=== PATIENT | male | born 1945 | race Caucasian/White ===

== ENCOUNTER 2016-11-14 23:49 | Inpatient (IN) | payer OTHER, MEDICARE ==
[~2016-11-14] VITALS: Ht 180.3 cm; Wt 109.5 kg
[~2016-11-14 23:49] MED LIST: ALBU8I INH; AMLO5 PO; ASPI1TAB7 PO; BIDE400T PO; CALCCHW25 PO; CLON.5 PO; DUONI NEB; ERYT2GEL2 TOP; FLUT50SP EACH NARE; FURO20 PO; GABA100C4 PO; KETO2%T TOP; LACT12%T TOP; LEVO75TA41 PO; METH500T3 PO; METO25 PO; NITR0.4S SL; POTA-243 PO; PRAV40 PO; PRED20 PO; PRIL20CA PO; SYMB160A INH; TAMS0.4C67 PO; TIOT18I INH; TRAM100T19 PO; WARF5TAB PO; Z.0.OXYGENDME NC; ZITH250T PO
[2016-11-15] VITALS (24 sets, daily range): BP systolic 116–142; BP diastolic 71–95; PULSE 78–138; RESP 14–24; TEMP 97.6–98.9; O2SAT 88–100
[2016-11-15] MEDS ORDERED: SODIUM CHLORIDE 0.9% FLUSH 10 ML FLUSH IVF PRN ×2 (00:15→02:15)
[2016-11-15] MEDS ORDERED: methylPREDNISolone SOD SUCC 125 MG/2 ML VIAL IVP ONE (00:15)
[2016-11-15] MEDS: RESP: ALBUTEROL 2.5 MG/IPRATROPIUM 0.5 MG NEB (SCH) INH ×2 (00:25→00:26)
[2016-11-15 00:34] LABS: AUTOMATED NEUTROPHIL # 15.7 TH/MM3 (1.8-7.7); BASOPHIL % 0.1 % (0.0-2.0); EOSINOPHIL # 0.1 TH/MM3 (0-0.4); EOSINOPHIL % 0.5 % (0.0-4.0); HEMATOCRIT 39.7 % (39.0-51.0); LYMPH % 9.6 % (9.0-44.0); LYMPHOCYTE # 1.8 TH/MM3 (1.0-4.8); MEAN CELL VOLUME 89.7 FL (80.0-100.0); MEAN CORPUSCULAR HEMOGLOBIN 30.4 PG (27.0-34.0); MEAN CORPUSCULAR HGB CONC 33.9 % (32.0-36.0); MONO % 6.9 % (0.0-8.0); NEUT % 82.9 % (16.0-70.0); PLATELET COUNT 313 TH/MM3 (150-450); RED BLOOD COUNT 4.42 MIL/MM3 (4.50-5.90); RED CELL DISTRIBUTION WIDTH 16.4 % (11.6-17.2)
--- NOTE | 2016-11-15 00:34 | RADRPT ---
EXAM DATE/TIME: 11/15/2016 00:18 [facility] COMPARISON: CHEST PA & LAT, May 01, 2015, 16:58. INDICATIONS : Short of breath. MEDICAL HISTORY : None. SURGICAL HISTORY : None. ENCOUNTER: Initial ACUITY: 1 day PAIN SCORE: 0/10 LOCATION: Bilateral chest FINDINGS: There is hazy airspace process left lung base and small left pleural effusion is suspected. There are old healed rib fractures in the left chest. Heart and mediastinum have not significantly changed. CONCLUSION: Small left pleural effusion and left lung base hazy opacity may represent pneumonia. Edward D eLa O MD on November 15, 2016 at 0:31 Board Certified Radiologist. This report was verified electronically.
[2016-11-15 00:36] LABS: HEMO FLAGS AUTO DIFF
[2016-11-15 00:48] LABS: APTT (PATIENT) 25.1 SEC (24.3-30.1); PROTHROMBIN TIME - PATIENT 11.1 SEC (9.8-11.6)
[2016-11-15 00:54] LABS: ALT (GPT) 34 U/L (12-78); ANION GAP 8 MEQ/L (5-15); AST (GOT) 17 U/L (15-37); BICARBONATE 35.7 MEQ/L (21.0-32.0); BLOOD UREA NITROGEN 14 MG/DL (7-18); CHLORIDE 94 MEQ/L (98-107); GLOMERULAR FILTRATION RATE 87 ML/MIN (>89); POTASSIUM 3.7 MEQ/L (3.5-5.1); SODIUM (NA) 138 MEQ/L (136-145)
[2016-11-15 00:58] LABS: SCAN/DIFF AUTO DIFF CONFIRMED
[2016-11-15 01:07] LABS: ALKALINE PHOSPHATASE 68 U/L (45-117); TOTAL BILIRUBIN ADULT 0.7 MG/DL (0.2-1.0)
[2016-11-15 01:15] LABS: CREATINE KINASE 36 U/L (39-308)
[2016-11-15] MEDS ORDERED: DILTIAZEM HCL 25 MG/5 ML VIAL IV ONE (01:45)
[2016-11-15] MEDS ORDERED: AZITHROMYCIN INJ 500 MG in SODIUM CHLOR 0.9% 250 ML INJ 250 ML IV ONE (01:45)
[2016-11-15] MEDS ORDERED: cefTRIAXone INJ 1,000 MG in SODIUM CHLORIDE 0.9% INJ 100 ML IV ONE (01:45)
[2016-11-15] MEDS ORDERED: SODIUM CHLORID 0.9% 500 ML INJ 500 ML IV ONE (01:45)
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
[2016-11-15] MEDS: DILTIAZEM INJ 125 MG in SODIUM CHLORIDE 0.9% INJ 100 ML IV SCH ×2 (02:47→20:08)
[2016-11-15] MEDS ORDERED: IOHEXOL 350 MG/ML 10 ML VIAL (for RAD DIAG) IV ONE (03:21)
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
[2016-11-15] MEDS ORDERED: NALOXONE HCL 0.4 MG/ML AMP IV PRN (03:30)
[2016-11-15] MEDS ORDERED: ONDANSETRON HCL 4 MG/2 ML VIAL IVP PRN (03:30)
[2016-11-15] MEDS ORDERED: SENNOSIDES 8.6 MG TAB PO PRN (03:30)
[2016-11-15] MEDS ORDERED: ACETAMINOPHEN 325 MG TAB PO PRN ×2 (03:30)
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
[2016-11-15] MEDS ORDERED: POTASSIUM CHLORIDE 25 MEQ EFFERVESCENT TAB PO ONE (04:00)
[2016-11-15] MEDS ORDERED: MORPHINE SULFATE 4 MG/ML INJ IV PUSH PRN (04:00)
[2016-11-15] MEDS: METOPROLOL TARTRATE 50 MG TAB PO SCH ×3 (04:14→19:57)
[2016-11-15] MEDS: FUROSEMIDE 40 MG/4 ML VIAL IV PUSH SCH ×2 (04:14→10:20)
[2016-11-15 04:17] LABS: BLOOD, URINE NEG (NEG); GLUCOSE,URINE NEG (NEG); KETONE, URINE NEG (NEG); NITRITE,URINE NEG (NEG); PH, URINE 7.5 (5.0-8.5); URINE COLOR YELLOW (YELLW/STRAW)
[2016-11-15 04:36] LABS: COMMENT (UR) CULT NOT INDICATED; CULTURE IF INDICATED CULT NOT INDICATED
[2016-11-15] MEDS ORDERED: methylPREDNISolone SOD SUCC 40 MG/1 ML VIAL IV PUSH SCH (06:00)
[2016-11-15] MEDS: LEVOTHYROXINE SODIUM 75 MCG TAB PO SCH (06:13)
[2016-11-15] MEDS ORDERED: CHLORHEXIDINE GLUCONATE 2 % 1 PACK (2 CLOTHS)(extra cloths) TOPICAL PRN (06:15)
[2016-11-15] MEDS: ENOXAPARIN SODIUM 40 MG/0.4 ML SYRINGE SQ SCH (09:00)
[2016-11-15 09:03] LABS: BLOOD GAS CARBOXYHEMOGLOBIN 2.3 % (0-4); BLOOD GAS HCO3 29 mmol/L (22-26); BLOOD GAS METHEMOGLOBIN 1.1 % (0-2); BLOOD GAS O2 HGB SATURATION 90 % (90-100); BLOOD GAS OXYGEN CONTENT 15.5 Vol % (12.0-20.0); BLOOD GAS PCO2 44 mmHg (38-42); BLOOD GAS PO2 69 mmHg (61-120); BLOOD GAS TOTAL HGB 12.2 G/DL (12.0-16.0); CRITICAL VALUE NO; DRAW SITE LT RADIAL; FIO2 50 %; NUMBER OF ARTERIAL PUNCTURES 1; OXYGEN DEVICE Venti Mask; STAT YES; TEMP CORR TO 98.6; ULNAR PULSE PRESENT
[2016-11-15] MEDS ORDERED: ETOMIDATE 40 MG/20 ML VIAL ONE (09:19)
[2016-11-15] MEDS ORDERED: ROCURONIUM INJ 50 MG/5 ML VIAL ONE (09:20)
[2016-11-15] MEDS ORDERED: PROPOFOL 500 MG/50 ML INJ 50 ML ONE (09:21)
[2016-11-15] MEDS: RESP: ALBUTEROL 2.5 MG/IPRATROPIUM 0.5 MG NEB (PRN) NEB (10:11)
[2016-11-15] MEDS: PANTOPRAZOLE SOD 40 MG DELAYED RELEASE TAB PO SCH (10:20)
[2016-11-15] MEDS: DOCUSATE SODIUM 100 MG CAP PO SCH ×2 (10:20→19:57)
[2016-11-15] MEDS: SODIUM CHLORIDE 0.9% FLUSH 10 ML FLUSH IV FLUSH SCH ×2 (10:21→19:57)
--- NOTE | 2016-11-15 10:24 | RADRPT ---
EXAM DATE/TIME: 11/15/2016 09:55 [place] COMPARISON: CHEST SINGLE AP, November 15, 2016, 0:18. INDICATIONS : Post intubation, OG tube, & left side chest tube. MEDICAL HISTORY : Chronic obstructive pulmonary disease. Congestive heart failure. Gastroesophageal reflux disease.Hype rtension. Hepatitis C. SURGICAL HISTORY : None. ENCOUNTER: Subsequent ACUITY: 4 - 6 days PAIN SCORE: Non-responsive. LOCATION: Left chest FINDINGS: A single view of the chest demonstrates cardiomegaly and left basilar density. No pneumothorax. Left- sided chest tube in good position. Endotracheal tube with tip 6 cm above the mary. Nasogastric tube with tip in stomach. Old left-sided rib fractures. Osseous structures are intact. CONCLUSION: 1. Cardiomegaly with left basilar density. 2. No pneumothorax. Dwayne Muniz MD on November 15, 2016 at 10:21 Board Certified Radiologist. This report was verified electronically.
[2016-11-15] MEDS ORDERED: PROPOFOL 1000 MG/100 ML INJ 100 ML ONE (10:29)
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
[2016-11-15 10:48] LABS: BLOOD GAS BASE EXCESS 8.1 mmol/L (-2-2); BLOOD GAS CARBOXYHEMOGLOBIN 2.1 % (0-4); BLOOD GAS HCO3 32 mmol/L (22-26); BLOOD GAS O2 HGB SATURATION 94 % (90-100); BLOOD GAS OXYGEN CONTENT 15.3 Vol % (12.0-20.0); BLOOD GAS PCO2 41 mmHg (38-42); BLOOD GAS PO2 83 mmHg (61-120); BLOOD GAS TOTAL HGB 11.6 G/DL (12.0-16.0); TEMP CORR TO 98.6
[2016-11-15 10:49] LABS: CRITICAL VALUE NO; DRAW SITE LT RADIAL; FIO2 100 %; NUMBER OF ARTERIAL PUNCTURES 1; OXYGEN DEVICE VENTILATOR; STAT NO; ULNAR PULSE PRESENT; VENT SETTINGS A/C 500/20/5PEEP
[2016-11-15] MEDS ORDERED: DEXTROSE 50% IN WATER 50 ML VIAL(D50) IV PRN (11:00)
[2016-11-15] MEDS ORDERED: GLUCAGON 1 MG/ML VIAL IM/SQ PRN (11:00)
--- NOTE | 2016-11-15 11:13 | PD.PROCEDR ---
Procedure Note Procedure Procedure: Endotracheal intubation Preop diagnosis: Acute on chronic respiratory failure, left pneumothorax, left lower lobe pneumonia, COPD exacerbation Postop diagnosis: Same Indication: Hypoxic respiratory failure Sedation used: Etomidate 40 mg, fentanyl 200 mcg, rocuronium 50 mg IV Procedure: Patient was preoxygenated with 100% oxygen via Ambu bag with bag mask ventilation, following induction of sedation and neuromuscular blockade, direct laryngoscopy was performed using a Mac 4 blade however due to floppy epiglottis and vocal cords were not visualized. A glide scope was used to visualize the vocal cords and an 8 Hong Konger ET tube was passed through the vocal cords under visualization with glide scope up to the 22 centimeter emanuel and after inflating cuff of ET tube, correct placement was confirmed using bagging with good color change on CO2 detector, 5 point auscultation and chest rise with ventilation. Patient was connected to mechanical ventilation. Patient tolerated the procedure well with no immediate complications noted. Postprocedure chest x-ray was ordered. Michael Titus MD November 15, 2016 11:00
[2016-11-15] MEDS: INSULIN ASPART SUPPLEMENTAL SCALE SQ SCH ×2 (12:00→18:00)
[2016-11-15] MEDS: RESP: ALBUTEROL 2.5 MG/IPRATROPIUM 0.5 MG NEB (SCH) NEB ×4 (12:00→23:38)
[2016-11-15 12:39] LABS: AUTOMATED NEUTROPHIL # 15.7 TH/MM3 (1.8-7.7); BASOPHIL % 0.2 % (0.0-2.0); HEMATOCRIT 33.4 % (39.0-51.0); HEMO FLAGS DIFF FINAL; LYMPH % 1.4 % (9.0-44.0); LYMPHOCYTE # 0.2 TH/MM3 (1.0-4.8); MEAN CELL VOLUME 89.1 FL (80.0-100.0); MEAN CORPUSCULAR HEMOGLOBIN 30.5 PG (27.0-34.0); MEAN CORPUSCULAR HGB CONC 34.3 % (32.0-36.0); MONO % 1.4 % (0.0-8.0); PLATELET COUNT 277 TH/MM3 (150-450); RED BLOOD COUNT 3.75 MIL/MM3 (4.50-5.90); RED CELL DISTRIBUTION WIDTH 16.6 % (11.6-17.2); WHITE BLOOD COUNT 16.2 TH/MM3 (4.0-11.0)
[2016-11-15 13:08] LABS: ALKALINE PHOSPHATASE 57 U/L (45-117); ALT (GPT) 28 U/L (12-78); ANION GAP 10 MEQ/L (5-15); AST (GOT) 18 U/L (15-37); BICARBONATE 34.3 MEQ/L (21.0-32.0); BLOOD UREA NITROGEN 16 MG/DL (7-18); CHLORIDE 92 MEQ/L (98-107); GLOMERULAR FILTRATION RATE 120 ML/MIN (>89); POTASSIUM 3.8 MEQ/L (3.5-5.1); SODIUM (NA) 136 MEQ/L (136-145); TOTAL BILIRUBIN ADULT 0.9 MG/DL (0.2-1.0)
[2016-11-15] MEDS: methylPREDNISolone SOD SUCC 40 MG/1 ML VIAL IV PUSH SCH ×2 (13:54→19:57)
[2016-11-15] MEDS: PROPOFOL 1000 MG/100 ML INJ 100 ML IV SCH ×3 (13:54→20:08)
--- NOTE | 2016-11-15 15:34 | EKG ---
Date Performed: 11/15/2016 Time Performed: 04:15:37 PTAGE: 70 years EKG: ATRIAL FIBRILLATION WITH RAPID VENTRICULAR RESPONSE RIGHT BUNDLE BRANCH BLOCK ABNORMAL ECG NO PREVIOUS TRACING DOCTOR: Reji Gabriel Interpretating Date/Time 11/15/2016 15:33:50
--- NOTE | 2016-11-15 15:34 | EKG ---
Date Performed: 11/14/2016 Time Performed: 23:53:55 PTAGE: 70 years EKG: ATRIAL FIBRILLATION WITH RAPID VENTRICULAR RESPONSE RIGHT BUNDLE BRANCH BLOCK ST DEPRESSION , CONSIDER SUBENDOCARDIAL INJURY ABNORMAL ECG WARNING: DATA QUALITY MAY AFFECT INTERPRETATION Compare d to prior tracing no significant change PREVIOUS TRACING : 05/01/2015 16.21 DOCTOR: Reji Gabriel Interpretating Date/Time 11/15/2016 15:33:30
--- NOTE | 2016-11-15 17:20 | OTSOAPIP ---
TIME SESSION COMPLETED: 1529 RECEIVED OCCUPATIONAL THERAPY ORDERS FROM DR. OTOOLE. PATIENT WAS AGITATED AND COMBATIVE EARLIER IN AM, REQUIRED INTUBATION. RN REQUESTS TO HOLD EVALUATION THIS DATE. WILL FOLLOW. INTERDISCIPLINARY COMMUNICATION: REVIEWED ELECTRONIC MEDICAL RECORD, SPOKE WITH HUGO BEE Therapist: Yessica Cruz, OTR/L Signature on file
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
[2016-11-15] MEDS: CHLORHEXIDINE 0.12% (ORAL KIT) 15 ML CUP MT SCH (19:58)
--- NOTE | 2016-11-15 21:02 | MP ---
cc: MILAGROS IBANEZ MD DATE OF SURGERY 11/15/16 PREOPERATIVE DIAGNOSIS 1. Respiratory failure, severe COPD. 2. Left-sided hemopneumothorax. POSTOPERATIVE DIAGNOSIS 1. Respiratory failure, severe COPD. 2. Left-sided hemopneumothorax. PROCEDURE Left chest tube placement. SURGEON Hesham Ibanez MD ANESTHESIA 1% Xylocaine and the patient is intubated, ventilated. ESTIMATED BLOOD LOSS minimal. PROCEDURE IN DETAIL The patient prepped and draped usual fashion. Incision made in the fifth intercostal space mid axillary line, deepened down with a hemostat into the chest. Then a 28-Welsh chest tube placed in posterior sulcus, sewn in with 0-silk, connected to Pleur-Evac. About 200 mL of old blood is removed. No air leak is noted. The patient tolerated the procedure well. Chest x-ray obtained. Milagros HOBBS/ /4:59 PM /8:54 PM
[2016-11-16] VITALS (19 sets, daily range): BP systolic 107–135; BP diastolic 68–88; PULSE 66–97; RESP 14–22; TEMP 98–98.9; O2SAT 91–99
[2016-11-16] MEDS: PROPOFOL 1000 MG/100 ML INJ 100 ML IV SCH ×5 (00:16→20:50)
[2016-11-16] MEDS: cefTRIAXone INJ 1,000 MG in SODIUM CHLORIDE 0.9% INJ 100 ML IV SCH (00:16)
[2016-11-16] MEDS: RESP: ALBUTEROL 2.5 MG/IPRATROPIUM 0.5 MG NEB (SCH) NEB ×6 (03:35→23:25)
[2016-11-16] MEDS: CHLORHEXIDINE GLUCONATE 2 % 1 PACK (2 CLOTHS)(taper/protocol) TOPICAL SCH (04:00)
[2016-11-16] MEDS: LEVOTHYROXINE SODIUM 75 MCG TAB PO SCH (04:34)
[2016-11-16] MEDS: methylPREDNISolone SOD SUCC 40 MG/1 ML VIAL IV PUSH SCH ×3 (04:34→20:50)
[2016-11-16] MEDS: AZITHROMYCIN INJ 500 MG in SODIUM CHLOR 0.9% 250 ML INJ 250 ML IV SCH (04:38)
[2016-11-16] MEDS: INSULIN ASPART SUPPLEMENTAL SCALE SQ SCH ×3 (06:00→12:00)
[2016-11-16] MEDS: PANTOPRAZOLE SOD 40 MG DELAYED RELEASE TAB PO SCH (08:04)
[2016-11-16] MEDS: METOPROLOL TARTRATE 50 MG TAB PO SCH ×2 (08:04→20:49)
[2016-11-16] MEDS: ENOXAPARIN SODIUM 40 MG/0.4 ML SYRINGE SQ SCH (08:04)
[2016-11-16] MEDS: DOCUSATE SODIUM 100 MG CAP PO SCH (08:05)
[2016-11-16] MEDS: FUROSEMIDE 40 MG/4 ML VIAL IV PUSH SCH (08:05)
[2016-11-16] MEDS: SODIUM CHLORIDE 0.9% FLUSH 10 ML FLUSH IV FLUSH SCH ×2 (08:06→20:51)
[2016-11-16] MEDS: CHLORHEXIDINE 0.12% (ORAL KIT) 15 ML CUP MT SCH ×2 (08:07→20:51)
[2016-11-16 08:49] LABS: AUTOMATED NEUTROPHIL # 16.4 TH/MM3 (1.8-7.7); BASOPHIL # 0.1 TH/MM3 (0-0.2); BASOPHIL % 0.3 % (0.0-2.0); HEMATOCRIT 31.6 % (39.0-51.0); LYMPH % 2.6 % (9.0-44.0); LYMPHOCYTE # 0.5 TH/MM3 (1.0-4.8); MEAN CELL VOLUME 89.5 FL (80.0-100.0); MEAN CORPUSCULAR HGB CONC 33.5 % (32.0-36.0); MONO % 3.4 % (0.0-8.0); NEUT % 93.7 % (16.0-70.0); PLATELET COUNT 255 TH/MM3 (150-450); RED BLOOD COUNT 3.53 MIL/MM3 (4.50-5.90); RED CELL DISTRIBUTION WIDTH 16.6 % (11.6-17.2); WHITE BLOOD COUNT 17.6 TH/MM3 (4.0-11.0)
[2016-11-16 08:57] LABS: HEMO FLAGS AUTO DIFF
[2016-11-16 09:09] LABS: ALKALINE PHOSPHATASE 50 U/L (45-117); ALT (GPT) 22 U/L (12-78); ANION GAP 8 MEQ/L (5-15); AST (GOT) 19 U/L (15-37); BICARBONATE 32.2 MEQ/L (21.0-32.0); BLOOD UREA NITROGEN 21 MG/DL (7-18); CHLORIDE 96 MEQ/L (98-107); GLOMERULAR FILTRATION RATE 124 ML/MIN (>89); SODIUM (NA) 136 MEQ/L (136-145); TOTAL BILIRUBIN ADULT 0.3 MG/DL (0.2-1.0)
[2016-11-16 09:10] LABS: POTASSIUM 4.5 MEQ/L (3.5-5.1)
[2016-11-16 09:11] LABS: CREATINE KINASE 64 U/L (39-308)
[2016-11-16 09:50] LABS: NEUTROPHIL # MANUAL DIFF 15.7 TH/MM3 (1.8-7.7); POLYS (SEG NEUTROPHILS) 89 % (16-70); WBC DIFF SAMPLE 100
[2016-11-16 09:51] LABS: PLATELET ESTIMATE SMEAR NORMAL (NORMAL); PLATELET MORPHOLOGY NORMAL (NORMAL); SCAN/DIFF FINAL DIFF MANUAL
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
[2016-11-16] MEDS ORDERED: SENNOSIDES SYRUP 8.8 MG/5 ML CUP PO ONE (10:30)
[2016-11-16] MEDS: DEXMEDETOMIDINE INJ 200 MCG in SODIUM CHLORIDE 0.9% INJ 50 ML IV SCH ×3 (10:54→14:51)
--- NOTE | 2016-11-16 15:32 | PD.CAR.PN ---
CVT Progress Note Subjective/Hospital Course: 11/16/16 Patient respiratory failure had chest tube placed yesterday Minimal drainage at this time after initial 300 cc of old blood No air leak noted Continue care Nothing to add from surgical point Objective: Vital Signs Date Time Temp Pulse Resp B/P Pulse Ox O2 Delivery O2 Flow Rate FiO2 11/16/16 14:00 67 11/16/16 14:00 77 11/16/16 12:00 98.7 77 17 130/88 93 11/16/16 12:00 76 11/16/16 12:00 40 11/16/16 11:45 93 40 11/16/16 10:00 95 11/16/16 08:00 95 11/16/16 08:00 40 11/16/16 08:00 98.8 95 16 133/82 94 11/16/16 07:27 93 40 11/16/16 07:00 92 11/16/16 06:00 93 11/16/16 04:08 93 40 11/16/16 04:00 96 14 123/79 93 11/16/16 04:00 45 11/16/16 04:00 97 11/16/16 02:00 88 11/16/16 00:00 45 11/16/16 00:00 98.0 88 22 114/70 99 11/16/16 00:00 86 11/15/16 23:37 96 40 11/15/16 23:00 89 11/15/16 22:00 80 11/15/16 20:00 78 11/15/16 20:00 45 11/15/16 20:00 98.0 88 14 97 11/15/16 19:44 95 40 11/15/16 18:00 92 11/15/16 16:00 97.7 96 14 122/86 100 11/15/16 16:00 96 11/15/16 16:00 70 Labs: Laboratory Tests Test 11/16/16 08:15 White Blood Count 17.6 TH/MM3 (4.0-11.0) Red Blood Count 3.53 MIL/MM3 (4.50-5.90) Hemoglobin 10.6 GM/DL (13.0-17.0) Hematocrit 31.6 % (39.0-51.0) Mean Corpuscular Volume 89.5 FL (80.0-100.0) Mean Corpuscular Hemoglobin 30.0 PG (27.0-34.0) Mean Corpuscular Hemoglobin 33.5 % Concent (32.0-36.0) Red Cell Distribution Width 16.6 % (11.6-17.2) Platelet Count 255 TH/MM3 (150-450) Mean Platelet Volume 7.8 FL (7.0-11.0) Neutrophils (%) (Auto) 93.7 % (16.0-70.0) Lymphocytes (%) (Auto) 2.6 % (9.0-44.0) Monocytes (%) (Auto) 3.4 % (0.0-8.0) Eosinophils (%) (Auto) 0.0 % (0.0-4.0) Basophils (%) (Auto) 0.3 % (0.0-2.0) Neutrophils # (Auto) 16.4 TH/MM3 (1.8-7.7) Lymphocytes # (Auto) 0.5 TH/MM3 (1.0-4.8) Monocytes # (Auto) 0.6 TH/MM3 (0-0.9) Eosinophils # (Auto) 0.0 TH/MM3 (0-0.4) Basophils # (Auto) 0.1 TH/MM3 (0-0.2) CBC Comment AUTO DIFF Differential Total Cells 100 Counted Neutrophils % (Manual) 89 % (16-70) Lymphocytes % 5 % (9-44) Monocytes % 6 % (0-8) Neutrophils # (Manual) 15.7 TH/MM3 (1.8-7.7) Differential Comment FINAL DIFF MANUAL Platelet Estimate NORMAL (NORMAL) Platelet Morphology Comment NORMAL (NORMAL) Sodium Level 136 MEQ/L (136-145) Potassium Level 4.5 MEQ/L (3.5-5.1) Chloride Level 96 MEQ/L (98-107) Carbon Dioxide Level 32.2 MEQ/L (21.0-32.0) Anion Gap 8 MEQ/L (5-15) Blood Urea Nitrogen 21 MG/DL (7-18) Creatinine 0.64 MG/DL (0.60-1.30) Estimat Glomerular Filtration 124 ML/MIN Rate (>89) Random Glucose 164 MG/DL (74-106) Calcium Level 8.4 MG/DL (8.5-10.1) Phosphorus Level 3.0 MG/DL (2.5-4.9) Magnesium Level 2.0 MG/DL (1.5-2.5) Total Bilirubin 0.3 MG/DL (0.2-1.0) Aspartate Amino Transf 19 U/L (15-37) (AST/SGOT) Alanine Aminotransferase 22 U/L (12-78) (ALT/SGPT) Alkaline Phosphatase 50 U/L (45-117) Total Creatine Kinase 64 U/L (39-308) Total Protein 5.3 GM/DL (6.4-8.2) Albumin 2.3 GM/DL (3.4-5.0) Result Diagram: 11/16/16 0815 11/16/16 0815 Lars Teresa MD November 16, 2016 3:32 pm
[2016-11-16] MEDS: fentaNYL DRIP 250 ML IV SCH (15:42)
--- NOTE | 2016-11-16 15:47 | HHI.PR ---
Subjective Remarks 70 YOWM with VDRF,PTX, pulm contusion, left ribs fractur On Vent Sedated Did't tolertae weaning Now on Precedex Chest tube no air leak Objective Vital Signs Vital Signs Date Time Temp Pulse Resp B/P Pulse Ox O2 Delivery O2 Flow Rate FiO2 11/16/16 14:00 67 11/16/16 14:00 77 11/16/16 12:00 98.7 77 17 130/88 93 11/16/16 12:00 76 11/16/16 12:00 40 11/16/16 11:45 93 40 11/16/16 10:00 95 11/16/16 08:00 95 11/16/16 08:00 40 11/16/16 08:00 98.8 95 16 133/82 94 11/16/16 07:27 93 40 11/16/16 07:00 92 11/16/16 06:00 93 11/16/16 04:08 93 40 11/16/16 04:00 96 14 123/79 93 11/16/16 04:00 45 11/16/16 04:00 97 11/16/16 02:00 88 11/16/16 00:00 45 11/16/16 00:00 98.0 88 22 114/70 99 11/16/16 00:00 86 11/15/16 23:37 96 40 11/15/16 23:00 89 11/15/16 22:00 80 11/15/16 20:00 78 11/15/16 20:00 45 11/15/16 20:00 98.0 88 14 97 11/15/16 19:44 95 40 11/15/16 18:00 92 11/15/16 16:00 97.7 96 14 122/86 100 11/15/16 16:00 96 11/15/16 16:00 70 I/O 11/15/16 11/15/16 11/15/16 11/16/16 11/16/16 11/16/16 07:00 15:00 23:00 07:00 15:00 23:00 Intake Total 610 ml 1858 ml 1381 ml 1465 ml Output Total 1250 ml 1650 ml 570 ml 270 ml 1150 ml Balance -1250 ml -1040 ml 1288 ml 1111 ml 315 ml Intake IV Total 610 ml 1401 ml 928 ml 930 ml Tube Feeding 337 ml 333 ml 495 ml Tube Irrigant 40 ml Other 120 ml 120 ml Output Urine Total 1250 ml 1400 ml 450 ml 250 ml 1150 ml Stool Total 0 ml 0 ml Chest Tube Drainage Total 250 ml 120 ml 20 ml # Bowel Movements 0 0 Result Diagram: 11/16/1681411/16/16814 Objective Remarks GENERAL: WBWN WM on vent, sedated SKIN: Warm and dry. HEAD: Normocephalic. EYES: No scleral icterus. No injection or drainage. NECK: Supple, trachea midline. No JVD or lymphadenopathy. CARDIOVASCULAR: Regular rate and rhythm without murmurs, gallops, or rubs. RESPIRATORY: Breath sounds equal bilaterally. No accessory muscle use. Left chest tube, no air leak. GASTROINTESTINAL: Abdomen soft, non-tender, nondistended. MUSCULOSKELETAL: No cyanosis, or edema. BACK: Nontender without obvious deformity. No CVA tenderness. A/P Assessment and Plan VDRF COPD PTX, s/p left chest tube Pulm contusion Ribs Fracture PALN: Vent support CPAP trial Chest tube to suction Aerosol nebs Sedation with Precedex. Ousmane Li MD November 16, 2016 15:47
[2016-11-16] MEDS: RESP: BUDESONIDE 0.5 MG/2 ML NEB NEB SCH (19:36)
[2016-11-16] MEDS: DOCUSATE SODIUM 100 MG/10 ML UDC PO SCH (20:50)
[2016-11-17] VITALS (32 sets, daily range): BP systolic 105–132; BP diastolic 68–89; PULSE 63–92; RESP 8–28; TEMP 97.8–98.9; O2SAT 89–100
[2016-11-17] MEDS: PROPOFOL 1000 MG/100 ML INJ 100 ML IV SCH ×6 (00:24→21:08)
[2016-11-17] MEDS: DILTIAZEM INJ 125 MG in SODIUM CHLORIDE 0.9% INJ 100 ML IV SCH (00:24)
[2016-11-17] MEDS: AZITHROMYCIN INJ 500 MG in SODIUM CHLOR 0.9% 250 ML INJ 250 ML IV SCH (02:15)
[2016-11-17] MEDS: cefTRIAXone INJ 1,000 MG in SODIUM CHLORIDE 0.9% INJ 100 ML IV SCH (02:15)
[2016-11-17] MEDS: RESP: ALBUTEROL 2.5 MG/IPRATROPIUM 0.5 MG NEB (SCH) NEB ×6 (03:27→23:40)
[2016-11-17] MEDS: methylPREDNISolone SOD SUCC 40 MG/1 ML VIAL IV PUSH SCH ×3 (05:43→21:08)
[2016-11-17] MEDS: CHLORHEXIDINE GLUCONATE 2 % 1 PACK (2 CLOTHS)(taper/protocol) TOPICAL SCH (05:43)
[2016-11-17] MEDS: LEVOTHYROXINE SODIUM 75 MCG TAB PO SCH (05:43)
[2016-11-17] MEDS: INSULIN ASPART SUPPLEMENTAL SCALE SQ SCH ×5 (06:02→22:33)
[2016-11-17] MEDS: RESP: BUDESONIDE 0.5 MG/2 ML NEB NEB SCH ×2 (08:23→20:43)
[2016-11-17] MEDS: ENOXAPARIN SODIUM 40 MG/0.4 ML SYRINGE SQ SCH (11:34)
[2016-11-17] MEDS: DOCUSATE SODIUM 100 MG/10 ML UDC PO SCH ×2 (11:34→21:09)
[2016-11-17] MEDS: METOPROLOL TARTRATE 50 MG TAB PO SCH ×2 (11:35→21:09)
[2016-11-17] MEDS: PANTOPRAZOLE SODIUM 40 MG VIAL IV PUSH SCH (11:35)
[2016-11-17] MEDS: SENNOSIDES SYRUP 8.8 MG/5 ML CUP PO SCH (11:35)
[2016-11-17] MEDS: SODIUM CHLORIDE 0.9% FLUSH 10 ML FLUSH IV FLUSH SCH ×2 (11:35→21:00)
[2016-11-17] MEDS: FUROSEMIDE 40 MG/4 ML VIAL IV PUSH SCH (11:35)
[2016-11-17] MEDS: SODIUM CHLORIDE 0.9% FLUSH 10 ML FLUSH IV FLUSH PRN (11:36)
[2016-11-17] MEDS: CHLORHEXIDINE 0.12% (ORAL KIT) 15 ML CUP MT SCH ×2 (11:38→21:08)
[2016-11-17] MEDS: fentaNYL DRIP 250 ML IV SCH ×2 (13:02→21:07)
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
--- NOTE | 2016-11-17 15:04 | RADRPT ---
EXAM DATE/TIME: 11/17/2016 13:57 [facility] COMPARISON: CHEST SINGLE AP, November 15, 2016, 9:55. INDICATIONS : Evaluate for pneumothorax. MEDICAL HISTORY : Chronic obstructive pulmonary disease. Congestive heart failure. SURGICAL HISTORY : Gastroesophageal reflux disease.Hypertension. Hepatitis C. ENCOUNTER: Subsequent ACUITY: 1 week PAIN SCORE: Non-responsive. LOCATION: Bilateral chest FINDINGS: A single view of the chest demonstrates endotracheal tube tip in satisfactory position. NG enters sto mach. Left chest tube without pneumothorax. Basilar airspace disease, left greater than right similar to November 15. CONCLUSION: 1. Support apparatus in satisfactory position. Left chest tube without pneumothorax. Kiran Montejo MD on November 17, 2016 at 14:52 Board Certified Radiologist. This report was verified electronically.
[2016-11-17 15:10] LABS: HEMATOCRIT 34.8 % (39.0-51.0); MEAN CELL VOLUME 90.1 FL (80.0-100.0); MEAN CORPUSCULAR HEMOGLOBIN 29.8 PG (27.0-34.0); PLATELET COUNT 247 TH/MM3 (150-450); RED BLOOD COUNT 3.87 MIL/MM3 (4.50-5.90); RED CELL DISTRIBUTION WIDTH 16.5 % (11.6-17.2); REVIEW FLAG FINAL; WHITE BLOOD COUNT 23.5 TH/MM3 (4.0-11.0)
[2016-11-17 15:33] LABS: BICARBONATE 31.7 MEQ/L (21.0-32.0)
[2016-11-17] MEDS ORDERED: SODIUM BICARBONATE 8.4% INJ 50 ML ONE (17:43)
--- NOTE | 2016-11-17 18:41 | HHI.PR ---
Subjective Remarks 70 YOWM with VDRF,PTX, pulm contusion, left ribs fractur On Vent Sedated Did't tolertae weaning Gets agitated on weaning Chest tube no air leak CXR no PTX Objective Vital Signs Vital Signs Date Time Temp Pulse Resp B/P Pulse Ox O2 Delivery O2 Flow Rate FiO2 11/17/16 18:00 88 11/17/16 16:17 92 40 11/17/16 16:00 40 11/17/16 16:00 80 11/17/16 16:00 98.4 80 14 111/79 90 11/17/16 15:30 85 14 111/72 89 11/17/16 15:00 80 14 114/76 90 11/17/16 14:30 81 16 113/74 91 11/17/16 14:00 81 11/17/16 14:00 81 8 132/68 94 11/17/16 13:30 74 14 122/68 92 11/17/16 13:00 74 14 119/80 92 11/17/16 12:30 73 16 122/87 91 11/17/16 12:18 78 18 125/79 91 11/17/16 12:00 83 11/17/16 12:00 40 11/17/16 12:00 98.9 83 14 100 11/17/16 11:30 81 15 123/78 100 11/17/16 11:19 92 40 11/17/16 11:00 73 14 115/78 92 11/17/16 10:30 76 14 114/74 93 11/17/16 10:00 79 11/17/16 10:00 79 14 118/76 94 11/17/16 09:30 72 16 122/73 94 11/17/16 09:00 73 20 115/89 94 11/17/16 08:30 79 28 126/82 100 11/17/16 08:25 94 40 11/17/16 08:00 72 11/17/16 08:00 40 11/17/16 08:00 98.6 72 16 120/76 96 11/17/16 06:00 72 11/17/16 04:09 96 40 11/17/16 04:00 40 11/17/16 04:00 78 11/17/16 04:00 98.3 78 14 105/74 96 11/17/16 02:00 63 11/17/16 00:06 93 40 11/17/16 00:00 40 11/17/16 00:00 66 11/17/16 00:00 98.3 66 14 106/70 94 11/16/16 22:00 66 11/16/16 20:00 98.5 75 14 107/68 91 11/16/16 20:00 40 11/16/16 20:00 75 11/16/16 19:31 92 40 I/O 11/16/16 11/16/16 11/16/16 11/17/16 11/17/16 11/17/16 07:00 15:00 23:00 07:00 15:00 23:00 Intake Total 1381 ml 1465 ml 1515 ml 1442 ml 1598 ml Output Total 270 ml 1170 ml 250 ml 250 ml 600 ml Balance 1111 ml 295 ml 1265 ml 1192 ml 998 ml Intake IV Total 928 ml 930 ml 1054 ml 1012 ml 1143 ml Tube Feeding 333 ml 495 ml 461 ml 430 ml 395 ml Tube Irrigant 40 ml 60 ml Other 120 ml Output Urine Total 250 ml 1150 ml 250 ml 250 ml 600 ml Stool Total 0 ml 0 ml Chest Tube Drainage Total 20 ml 20 ml # Bowel Movements 0 Result Diagram: 11/17/16 1442 11/17/16 1442 Objective Remarks GENERAL: WBWN WM on vent, sedated SKIN: Warm and dry. HEAD: Normocephalic. EYES: No scleral icterus. No injection or drainage. NECK: Supple, trachea midline. No JVD or lymphadenopathy. CARDIOVASCULAR: Regular rate and rhythm without murmurs, gallops, or rubs. RESPIRATORY: Breath sounds equal bilaterally. No accessory muscle use. Left chest tube, no air leak. GASTROINTESTINAL: Abdomen soft, non-tender, nondistended. MUSCULOSKELETAL: No cyanosis, or edema. BACK: Nontender without obvious deformity. No CVA tenderness. A/P Assessment and Plan VDRF COPD PTX, s/p left chest tube Pulm contusion Ribs Fracture PALN: Vent support CPAP trial Chest tube to suction Aerosol nebs Sedation with Precedex. Ousmane Li MD November 17, 2016 18:41
[2016-11-17] MEDS ORDERED: POTASSIUM CHLORIDE 25 MEQ EFFERVESCENT TAB PO ONE (20:00)
[2016-11-17] MEDS ORDERED: MAGNESIUM SULFATE 1 GM PREMIX 100 ML IV ONE (20:00)
[2016-11-18] VITALS (19 sets, daily range): BP systolic 105–131; BP diastolic 73–86; PULSE 91–98; RESP 14–16; TEMP 97.1–98.1; O2SAT 91–96
[2016-11-18] MEDS: cefTRIAXone INJ 1,000 MG in SODIUM CHLORIDE 0.9% INJ 100 ML IV SCH (01:29)
[2016-11-18] MEDS: AZITHROMYCIN INJ 500 MG in SODIUM CHLOR 0.9% 250 ML INJ 250 ML IV SCH (01:29)
[2016-11-18] MEDS: CHLORHEXIDINE GLUCONATE 2 % 1 PACK (2 CLOTHS)(taper/protocol) TOPICAL SCH (02:04)
[2016-11-18] MEDS: PROPOFOL 1000 MG/100 ML INJ 100 ML IV SCH ×6 (02:04→20:19)
[2016-11-18] MEDS: RESP: ALBUTEROL 2.5 MG/IPRATROPIUM 0.5 MG NEB (SCH) NEB ×6 (04:17→23:01)
[2016-11-18 05:06] LABS: ALKALINE PHOSPHATASE 61 U/L (45-117); ALT (GPT) 20 U/L (12-78); ANION GAP 8 MEQ/L (5-15); AST (GOT) 17 U/L (15-37); BICARBONATE 32.4 MEQ/L (21.0-32.0); BLOOD UREA NITROGEN 37 MG/DL (7-18); CHLORIDE 98 MEQ/L (98-107); CREATINE KINASE 182 U/L (39-308); GLOMERULAR FILTRATION RATE 118 ML/MIN (>89); MAGNESIUM 2.5 MG/DL (1.5-2.5); POTASSIUM 4.3 MEQ/L (3.5-5.1); SODIUM (NA) 138 MEQ/L (136-145); TOTAL BILIRUBIN ADULT 0.2 MG/DL (0.2-1.0)
[2016-11-18] MEDS: LEVOTHYROXINE SODIUM 75 MCG TAB PO SCH (05:44)
[2016-11-18] MEDS: methylPREDNISolone SOD SUCC 40 MG/1 ML VIAL IV PUSH SCH ×3 (05:44→20:18)
[2016-11-18] MEDS: INSULIN ASPART SUPPLEMENTAL SCALE SQ SCH ×4 (06:00→23:48)
--- NOTE | 2016-11-18 06:52 | RADRPT ---
EXAM DATE/TIME: 11/18/2016 04:50 [facility] COMPARISON: CHEST SINGLE AP, November 17, 2016, 13:57. INDICATIONS : Evaluate for respiratory failure. MEDICAL HISTORY : Chronic obstructive pulmonary disease. Congestive heart failure. SURGICAL HISTORY : Gastroesophageal reflux disease.Hypertension. Hepatitis C. ENCOUNTER: Subsequent ACUITY: 4 - 6 days PAIN SCORE: Non-responsive. LOCATION: chest FINDINGS: A single view of the chest demonstrates the endotracheal tube, nasogastric tube and left chest tube a ll in good position. There continues to be consolidation left lower lobe with cardiomegaly. Right tatiana g is relatively clear.. Osseous structures are intact. CONCLUSION: Persistent consolidation left lower lobe. Tubes are in good position Presley Pond MD on November 18, 2016 at 6:50 Board Certified Radiologist. This report was verified electronically.
[2016-11-18] MEDS: RESP: BUDESONIDE 0.5 MG/2 ML NEB NEB SCH ×2 (07:48→19:36)
[2016-11-18] MEDS: CHLORHEXIDINE 0.12% (ORAL KIT) 15 ML CUP MT SCH ×2 (08:11→20:18)
[2016-11-18] MEDS: PANTOPRAZOLE SODIUM 40 MG VIAL IV PUSH SCH (08:12)
[2016-11-18] MEDS: SENNOSIDES SYRUP 8.8 MG/5 ML CUP PO SCH ×2 (08:12→20:18)
[2016-11-18] MEDS: DOCUSATE SODIUM 100 MG/10 ML UDC PO SCH ×2 (08:12→20:18)
[2016-11-18] MEDS: FUROSEMIDE 40 MG/4 ML VIAL IV PUSH SCH (08:13)
[2016-11-18] MEDS: SODIUM CHLORIDE 0.9% FLUSH 10 ML FLUSH IV FLUSH SCH ×2 (08:13→20:19)
[2016-11-18] MEDS: METOPROLOL TARTRATE 50 MG TAB PO SCH ×2 (08:13→20:19)
[2016-11-18] MEDS: ENOXAPARIN SODIUM 40 MG/0.4 ML SYRINGE SQ SCH (08:13)
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
[2016-11-18] MEDS: PIPERACIL-TAZO 4.5 GM PREMIX 100 ML IV SCH ×3 (10:27→20:18)
[2016-11-18 11:45] LABS: AUTOMATED NEUTROPHIL # 20.4 TH/MM3 (1.8-7.7); BASOPHIL # 0.2 TH/MM3 (0-0.2); BASOPHIL % 0.9 % (0.0-2.0); EOSINOPHIL % 0.2 % (0.0-4.0); HEMATOCRIT 34.2 % (39.0-51.0); HEMO FLAGS DIFF FINAL; LYMPH % 2.3 % (9.0-44.0); LYMPHOCYTE # 0.5 TH/MM3 (1.0-4.8); MEAN CELL VOLUME 89.7 FL (80.0-100.0); MEAN CORPUSCULAR HEMOGLOBIN 29.3 PG (27.0-34.0); MEAN CORPUSCULAR HGB CONC 32.7 % (32.0-36.0); MONO % 6.3 % (0.0-8.0); NEUT % 90.3 % (16.0-70.0); PLATELET COUNT 239 TH/MM3 (150-450); RED BLOOD COUNT 3.81 MIL/MM3 (4.50-5.90); RED CELL DISTRIBUTION WIDTH 16.7 % (11.6-17.2); WHITE BLOOD COUNT 22.6 TH/MM3 (4.0-11.0)
[2016-11-18 12:31] LABS: BLOOD GAS BASE EXCESS 8.4 mmol/L (-2-2); BLOOD GAS CARBOXYHEMOGLOBIN 1.4 % (0-4); BLOOD GAS HCO3 33 mmol/L (22-26); BLOOD GAS METHEMOGLOBIN 1.4 % (0-2); BLOOD GAS O2 HGB SATURATION 91 % (90-100); BLOOD GAS OXYGEN CONTENT 14.8 Vol % (12.0-20.0); BLOOD GAS PCO2 49 mmHg (38-42); BLOOD GAS PO2 73 mmHg (61-120); BLOOD GAS TOTAL HGB 11.5 G/DL (12.0-16.0); CRITICAL VALUE NO; DRAW SITE LT RADIAL; FIO2 60 %; NUMBER OF ARTERIAL PUNCTURES 1; OXYGEN DEVICE VENTILATOR; STAT NO; TEMP CORR TO 98.6; ULNAR PULSE PRESENT; VENT SETTINGS PRVC/AC
[2016-11-18] MEDS: fentaNYL DRIP 250 ML IV SCH (13:40)
--- NOTE | 2016-11-18 17:03 | HHI.PR ---
Subjective Remarks 70 YOWM with VDRF,PTX, pulm contusion, left ribs fractur On Vent Sedated Chest tube no air leak CXR no PTX Objective Vital Signs Vital Signs Date Time Temp Pulse Resp B/P Pulse Ox O2 Delivery O2 Flow Rate FiO2 11/18/16 16:00 97.1 98 16 105/73 92 11/18/16 16:00 65 11/18/16 16:00 96 11/18/16 15:23 92 65 11/18/16 14:00 96 11/18/16 12:00 97.4 95 14 117/81 93 11/18/16 12:00 95 11/18/16 12:00 60 11/18/16 11:45 94 60 11/18/16 10:00 93 11/18/16 08:00 93 11/18/16 08:00 60 11/18/16 08:00 97.1 93 15 131/82 91 11/18/16 07:48 91 60 11/18/16 06:00 92 11/18/16 04:12 96 60 11/18/16 04:00 97.4 91 14 129/86 94 11/18/16 04:00 40 11/18/16 04:00 91 11/18/16 02:00 91 11/18/16 01:50 92 60 11/18/16 00:00 97.6 93 16 126/78 95 11/18/16 00:00 40 11/18/16 00:00 93 11/17/16 22:36 93 40 11/17/16 22:00 91 11/17/16 20:18 91 40 11/17/16 20:18 91 Ventilator 40 11/17/16 20:00 92 11/17/16 20:00 97.8 92 14 131/84 97 11/17/16 20:00 40 11/17/16 18:00 88 I/O 11/17/16 11/17/16 11/17/16 11/18/16 11/18/16 11/18/16 07:00 15:00 23:00 07:00 15:00 23:00 Intake Total 1442 ml 1598 ml 812 ml 1150 ml 1068 ml Output Total 250 ml 600 ml 350 ml 551 ml 1350 ml Balance 1192 ml 998 ml 462 ml 599 ml -282 ml Intake Oral 0 ml 0 ml IV Total 1012 ml 1143 ml 383 ml 710 ml 689 ml Tube Feeding 430 ml 395 ml 369 ml 380 ml 319 ml Tube Irrigant 60 ml 60 ml 60 ml 60 ml Output Urine Total 250 ml 600 ml 350 ml 500 ml 1350 ml Stool Total 0 ml 0 ml 1 ml 0 ml Chest Tube Drainage Total 50 ml Result Diagram: 11/18/16 1041 11/18/16 0340 Objective Remarks GENERAL: WBWN WM on vent, sedated SKIN: Warm and dry. HEAD: Normocephalic. EYES: No scleral icterus. No injection or drainage. NECK: Supple, trachea midline. No JVD or lymphadenopathy. CARDIOVASCULAR: Regular rate and rhythm without murmurs, gallops, or rubs. RESPIRATORY: Breath sounds equal bilaterally. No accessory muscle use. Left chest tube, no air leak. GASTROINTESTINAL: Abdomen soft, non-tender, nondistended. MUSCULOSKELETAL: No cyanosis, or edema. BACK: Nontender without obvious deformity. No CVA tenderness. A/P Assessment and Plan VDRF COPD PTX, s/p left chest tube Pulm contusion Ribs Fracture PALN: Vent support CPAP trial Chest tube to suction Aerosol nebs Sedation with Precedex. Ousmane Li MD November 18, 2016 17:03
[2016-11-19] VITALS (28 sets, daily range): BP systolic 102–131; BP diastolic 67–89; PULSE 93–115; RESP 16–17; TEMP 97.7–98.9; O2SAT 84–96
[2016-11-19] MEDS: AZITHROMYCIN INJ 500 MG in SODIUM CHLOR 0.9% 250 ML INJ 250 ML IV SCH (02:36)
[2016-11-19] MEDS: fentaNYL DRIP 250 ML IV SCH ×3 (02:36→21:58)
[2016-11-19] MEDS: RESP: ALBUTEROL 2.5 MG/IPRATROPIUM 0.5 MG NEB (SCH) NEB ×6 (03:11→23:11)
[2016-11-19] MEDS: CHLORHEXIDINE GLUCONATE 2 % 1 PACK (2 CLOTHS)(taper/protocol) TOPICAL SCH (03:14)
[2016-11-19] MEDS: PIPERACIL-TAZO 4.5 GM PREMIX 100 ML IV SCH ×4 (03:14→20:55)
[2016-11-19] MEDS: PROPOFOL 1000 MG/100 ML INJ 100 ML IV SCH ×6 (03:22→20:41)
--- NOTE | 2016-11-19 05:00 | RADRPT ---
EXAM DATE/TIME: 11/19/2016 04:02 [facility] COMPARISON: CHEST SINGLE AP, November 18, 2016, 4:50. INDICATIONS : Shortness of breath, possible pulmonary disease. MEDICAL HISTORY : Chronic obstructive pulmonary disease. Congestive heart failure. Gastroesophageal reflux disease. Hep C Hypertension SURGICAL HISTORY : None. ENCOUNTER: Subsequent ACUITY: 4 - 6 days PAIN SCORE: Non-responsive. LOCATION: Bilateral chest FINDINGS: A single view of the chest demonstrates the endotracheal tube, nasogastric and left-sided chest tube are all in good position. Persistent consolidation left lower lobe. T The cardiomediastinal contours are unremarkable. Osseous structures are intact. CONCLUSION: To the catheter in good position. Persistent consolidation left lower lobe Presley Pond MD on November 19, 2016 at 4:58 Board Certified Radiologist. This report was verified electronically.
[2016-11-19] MEDS: methylPREDNISolone SOD SUCC 40 MG/1 ML VIAL IV PUSH SCH ×3 (05:11→20:42)
[2016-11-19] MEDS: LEVOTHYROXINE SODIUM 75 MCG TAB PO SCH (05:11)
[2016-11-19] MEDS: INSULIN ASPART SUPPLEMENTAL SCALE SQ SCH ×4 (06:00→23:45)
[2016-11-19] MEDS: RESP: BUDESONIDE 0.5 MG/2 ML NEB NEB SCH ×2 (07:26→19:49)
[2016-11-19 07:47] LABS: AUTOMATED NEUTROPHIL # 16.1 TH/MM3 (1.8-7.7); BASOPHIL % 0.1 % (0.0-2.0); EOSINOPHIL % 0.1 % (0.0-4.0); HEMATOCRIT 34.1 % (39.0-51.0); LYMPH % 2.7 % (9.0-44.0); LYMPHOCYTE # 0.5 TH/MM3 (1.0-4.8); MEAN CELL VOLUME 90.3 FL (80.0-100.0); MEAN CORPUSCULAR HEMOGLOBIN 29.4 PG (27.0-34.0); MEAN CORPUSCULAR HGB CONC 32.6 % (32.0-36.0); NEUT % 91.1 % (16.0-70.0); PLATELET COUNT 254 TH/MM3 (150-450); RED BLOOD COUNT 3.77 MIL/MM3 (4.50-5.90); RED CELL DISTRIBUTION WIDTH 16.7 % (11.6-17.2); WHITE BLOOD COUNT 17.7 TH/MM3 (4.0-11.0)
[2016-11-19 07:52] LABS: HEMO FLAGS AUTO DIFF
[2016-11-19 08:06] LABS: ALKALINE PHOSPHATASE 64 U/L (45-117); ALT (GPT) 27 U/L (12-78); ANION GAP 9 MEQ/L (5-15); AST (GOT) 21 U/L (15-37); BICARBONATE 32.6 MEQ/L (21.0-32.0); BLOOD UREA NITROGEN 41 MG/DL (7-18); CHLORIDE 97 MEQ/L (98-107); GLOMERULAR FILTRATION RATE 105 ML/MIN (>89); MAGNESIUM 2.7 MG/DL (1.5-2.5); POTASSIUM 3.7 MEQ/L (3.5-5.1); SODIUM (NA) 139 MEQ/L (136-145); TOTAL BILIRUBIN ADULT 0.3 MG/DL (0.2-1.0)
[2016-11-19 08:39] LABS: BANDS 3 % (0-6); MYELOCYTES 1 % (0-0); NEUTROPHIL # MANUAL DIFF 16.6 TH/MM3 (1.8-7.7); PLATELET ESTIMATE SMEAR NORMAL (NORMAL); PLATELET MORPHOLOGY NORMAL (NORMAL); POLYS (SEG NEUTROPHILS) 90 % (16-70); SCAN/DIFF FINAL DIFF MANUAL; WBC DIFF SAMPLE 100
[2016-11-19] MEDS: PANTOPRAZOLE SODIUM 40 MG VIAL IV PUSH SCH (08:55)
[2016-11-19] MEDS: DOCUSATE SODIUM 100 MG/10 ML UDC PO SCH ×2 (08:55→20:41)
[2016-11-19] MEDS: METOPROLOL TARTRATE 50 MG TAB PO SCH ×2 (08:55→20:41)
[2016-11-19] MEDS: SENNOSIDES SYRUP 8.8 MG/5 ML CUP PO SCH ×2 (08:55→20:41)
[2016-11-19] MEDS: CHLORHEXIDINE 0.12% (ORAL KIT) 15 ML CUP MT SCH ×2 (08:55→20:42)
[2016-11-19] MEDS: SODIUM CHLORIDE 0.9% FLUSH 10 ML FLUSH IV FLUSH SCH ×2 (08:56→20:41)
[2016-11-19] MEDS: ENOXAPARIN SODIUM 40 MG/0.4 ML SYRINGE SQ SCH (08:56)
[2016-11-19] MEDS: FUROSEMIDE 40 MG/4 ML VIAL IV PUSH SCH (08:56)
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
[2016-11-19] MEDS ORDERED: POLYETHYLENE GLYCOL 17 GM PKG PO ONE (12:45)
[2016-11-19] MEDS ORDERED: LACTULOSE SYRUP 20 GM/30 ML CUP PO ONE (12:45)
--- NOTE | 2016-11-19 16:14 | HHI.PR ---
Subjective Remarks 70 YOWM with VDRF,PTX, pulm contusion, left ribs fractur On Vent Sedated Chest tube no air leak CXR no PTX Gets agitated on weaning sedation. Objective Vital Signs Vital Signs Date Time Temp Pulse Resp B/P Pulse Ox O2 Delivery O2 Flow Rate FiO2 11/19/16 15:25 92 50 11/19/16 14:00 99 11/19/16 12:00 55 11/19/16 12:00 106 11/19/16 12:00 97.8 97 17 111/72 92 11/19/16 11:10 92 50 11/19/16 10:00 99 11/19/16 08:00 55 11/19/16 08:00 97 11/19/16 08:00 98.1 97 16 129/89 91 11/19/16 07:22 91 55 11/19/16 06:00 97 11/19/16 04:30 93 55 11/19/16 04:00 96 11/19/16 04:00 55 11/19/16 04:00 97.7 96 16 114/74 94 11/19/16 02:00 96 11/19/16 01:06 92 55 11/19/16 00:00 97 11/19/16 00:00 97.8 97 16 114/78 92 11/19/16 00:00 55 11/18/16 22:04 92 55 11/18/16 22:00 94 11/18/16 20:00 97.6 95 16 117/73 92 11/18/16 20:00 95 11/18/16 20:00 55 11/18/16 19:34 92 55 11/18/16 18:00 96 I/O 11/18/16 11/18/16 11/18/16 11/19/16 11/19/16 11/19/16 07:00 15:00 23:00 07:00 15:00 23:00 Intake Total 1150 ml 1068 ml 1221 ml 937 ml 906 ml Output Total 551 ml 1350 ml 1025 ml 400 ml 1325 ml Balance 599 ml -282 ml 196 ml 537 ml -419 ml Intake Oral 0 ml 0 ml 0 ml 0 ml IV Total 710 ml 689 ml 751 ml 495 ml 254 ml Tube Feeding 380 ml 319 ml 410 ml 382 ml 412 ml Tube Irrigant 60 ml 60 ml 60 ml 60 ml Other 240 ml Output Urine Total 500 ml 1350 ml 1000 ml 400 ml 1300 ml Stool Total 1 ml 0 ml 0 ml 0 ml 0 ml Chest Tube Drainage Total 50 ml 25 ml 0 ml 25 ml Result Diagram: 11/19/16 0459 11/19/16 0518 Objective Remarks GENERAL: WBWN WM on vent, sedated SKIN: Warm and dry. HEAD: Normocephalic. EYES: No scleral icterus. No injection or drainage. NECK: Supple, trachea midline. No JVD or lymphadenopathy. CARDIOVASCULAR: Regular rate and rhythm without murmurs, gallops, or rubs. RESPIRATORY: Breath sounds equal bilaterally. No accessory muscle use. Left chest tube, no air leak. GASTROINTESTINAL: Abdomen soft, non-tender, nondistended. MUSCULOSKELETAL: No cyanosis, or edema. BACK: Nontender without obvious deformity. No CVA tenderness. A/P Assessment and Plan VDRF COPD PTX, s/p left chest tube Pulm contusion Ribs Fracture PALN: Vent support CPAP trial Chest tube to suction Aerosol nebs Sedation with Precedex. Wean vent as tolerated. Ousmane Li MD November 19, 2016 16:14
[2016-11-20] VITALS (19 sets, daily range): BP systolic 108–124; BP diastolic 67–77; PULSE 88–110; RESP 16; TEMP 97.4–98.7; O2SAT 90–99
[2016-11-20] MEDS: PROPOFOL 1000 MG/100 ML INJ 100 ML IV SCH ×7 (01:07→22:45)
[2016-11-20] MEDS: RESP: ALBUTEROL 2.5 MG/IPRATROPIUM 0.5 MG NEB (SCH) NEB ×6 (03:42→23:20)
[2016-11-20] MEDS: CHLORHEXIDINE GLUCONATE 2 % 1 PACK (2 CLOTHS)(taper/protocol) TOPICAL SCH (04:00)
[2016-11-20] MEDS: PIPERACIL-TAZO 4.5 GM PREMIX 100 ML IV SCH ×2 (04:25→09:10)
[2016-11-20] MEDS: AZITHROMYCIN INJ 500 MG in SODIUM CHLOR 0.9% 250 ML INJ 250 ML IV SCH (04:26)
--- NOTE | 2016-11-20 05:24 | RADRPT ---
EXAM DATE/TIME: 11/20/2016 03:52 [facility] COMPARISON: CHEST SINGLE AP, November 19, 2016, 4:02. INDICATIONS : Shortness of breath, possible pulmonary disease. MEDICAL HISTORY : Chronic obstructive pulmonary disease. Congestive heart failure. Gastroesophageal reflux disease. Hep C Hypertension SURGICAL HISTORY : None. ENCOUNTER: Subsequent ACUITY: 1 week PAIN SCORE: Non-responsive. LOCATION: Bilateral chest FINDINGS: Endotracheal tube in satisfactory position. NG enters stomach. Cardiomegaly. Left-sided chest tube wi thout significant pneumothorax. Small effusions with basilar airspace disease. CONCLUSION: 1. Endotracheal tube, nasogastric tube and left chest are unchanged. Basilar airspace disease and ple ural effusions also stable. Cardiomegaly Kiran Montejo MD on November 20, 2016 at 5:21 Board Certified Radiologist. This report was verified electronically.
[2016-11-20] MEDS: LEVOTHYROXINE SODIUM 75 MCG TAB PO SCH (05:54)
[2016-11-20] MEDS: methylPREDNISolone SOD SUCC 40 MG/1 ML VIAL IV PUSH SCH ×3 (05:54→21:22)
[2016-11-20] MEDS: INSULIN ASPART SUPPLEMENTAL SCALE SQ SCH ×4 (05:55→23:19)
[2016-11-20] MEDS: RESP: BUDESONIDE 0.5 MG/2 ML NEB NEB SCH ×2 (07:42→19:45)
[2016-11-20] MEDS: fentaNYL DRIP 250 ML IV SCH ×2 (07:52→17:56)
[2016-11-20] MEDS: SENNOSIDES SYRUP 8.8 MG/5 ML CUP PO SCH ×2 (07:53→19:59)
[2016-11-20] MEDS: DOCUSATE SODIUM 100 MG/10 ML UDC PO SCH ×2 (07:53→19:59)
[2016-11-20] MEDS: LACTULOSE SYRUP 20 GM/30 ML CUP PO SCH (07:53)
[2016-11-20] MEDS: POLYETHYLENE GLYCOL 17 GM PKG PO SCH (07:53)
[2016-11-20] MEDS: ENOXAPARIN SODIUM 40 MG/0.4 ML SYRINGE SQ SCH (07:53)
[2016-11-20] MEDS: PANTOPRAZOLE SODIUM 40 MG VIAL IV PUSH SCH (07:53)
[2016-11-20] MEDS: METOPROLOL TARTRATE 50 MG TAB PO SCH ×2 (07:53→19:59)
[2016-11-20] MEDS: FUROSEMIDE 40 MG/4 ML VIAL IV PUSH SCH (07:53)
[2016-11-20] MEDS: SODIUM CHLORIDE 0.9% FLUSH 10 ML FLUSH IV FLUSH SCH ×2 (07:54→19:59)
[2016-11-20] MEDS: CHLORHEXIDINE 0.12% (ORAL KIT) 15 ML CUP MT SCH ×2 (07:54→19:59)
[2016-11-20 09:24] LABS: BASOPHIL # 0.1 TH/MM3 (0-0.2); BASOPHIL % 0.2 % (0.0-2.0); EOSINOPHIL # 0.2 TH/MM3 (0-0.4); EOSINOPHIL % 0.6 % (0.0-4.0); HEMATOCRIT 34.4 % (39.0-51.0); LYMPH % 3.2 % (9.0-44.0); LYMPHOCYTE # 0.9 TH/MM3 (1.0-4.8); MEAN CELL VOLUME 90.3 FL (80.0-100.0); MEAN CORPUSCULAR HEMOGLOBIN 30.6 PG (27.0-34.0); MEAN CORPUSCULAR HGB CONC 33.9 % (32.0-36.0); MONO % 7.6 % (0.0-8.0); NEUT % 88.4 % (16.0-70.0); PLATELET COUNT 254 TH/MM3 (150-450); RED BLOOD COUNT 3.81 MIL/MM3 (4.50-5.90); RED CELL DISTRIBUTION WIDTH 16.8 % (11.6-17.2); WHITE BLOOD COUNT 27.1 TH/MM3 (4.0-11.0)
[2016-11-20 09:37] LABS: ALKALINE PHOSPHATASE 61 U/L (45-117); ALT (GPT) 30 U/L (12-78); ANION GAP 10 MEQ/L (5-15); AST (GOT) 35 U/L (15-37); BICARBONATE 29.8 MEQ/L (21.0-32.0); CHLORIDE 98 MEQ/L (98-107); GLOMERULAR FILTRATION RATE 118 ML/MIN (>89); MAGNESIUM 2.7 MG/DL (1.5-2.5); POTASSIUM 5.5 MEQ/L (3.5-5.1); SODIUM (NA) 138 MEQ/L (136-145); TOTAL BILIRUBIN ADULT 0.3 MG/DL (0.2-1.0)
[2016-11-20 09:38] LABS: BLOOD UREA NITROGEN 43 MG/DL (7-18)
[2016-11-20 09:42] LABS: HEMO FLAGS AUTO DIFF
[2016-11-20] MEDS ORDERED: SODIUM BICARBONATE 8.4% SOLN 50 MEQ/50 ML VIAL SLOW IVP ONE (11:00)
[2016-11-20] MEDS ORDERED: INSULIN HUMAN REGULAR 1,000 UNITS/10 ML VIAL IV PUSH ONE (11:00)
[2016-11-20] MEDS ORDERED: CALCIUM GLUCONATE 10% 1 GM/10 ML VIAL SLOW IVP ONE (11:00)
[2016-11-20] MEDS ORDERED: SODIUM POLYSTYRENE SULFONATE SUSP 15 GM/60 ML CUP PO ONE (11:00)
[2016-11-20] MEDS ORDERED: DEXTROSE 50% IN WATER 50 ML VIAL(D50) IV PUSH ONE (11:00)
[2016-11-20 11:02] LABS: BANDS 3 % (0-6); MYELOCYTES 5 % (0-0); NEUTROPHIL # MANUAL DIFF 25.5 TH/MM3 (1.8-7.7); PLATELET ESTIMATE SMEAR NORMAL (NORMAL); PLATELET MORPHOLOGY NORMAL (NORMAL); POLYS (SEG NEUTROPHILS) 86 % (16-70); SCAN/DIFF FINAL DIFF MANUAL; WBC DIFF SAMPLE 100
[2016-11-20 11:03] LABS: TARGET CELLS 1+ (NORMAL)
[2016-11-20] MEDS ORDERED: ROCURONIUM INJ 50 MG/5 ML VIAL ONE (12:11)
[2016-11-20] MEDS ORDERED: ROCURONIUM INJ 50 MG/5 ML VIAL IV ONE (12:15)
[2016-11-20] MEDS ORDERED: ROCURONIUM INJ 100 MG/10 ML VIAL IV ONE (12:15)
--- NOTE | 2016-11-20 13:52 | RADRPT ---
EXAM DATE/TIME: 11/20/2016 13:22 [facility] COMPARISON: CHEST SINGLE AP, November 20, 2016, 3:52. INDICATIONS : Status post bronchoscopy. MEDICAL HISTORY : Hypertension. Gastroesophageal reflux disease. Chronic obstructive pulmonary disease. Congestive heart failure. SURGICAL HISTORY : None. ENCOUNTER: Initial ACUITY: 1 day PAIN SCORE: Non-responsive. LOCATION: Bilateral chest FINDINGS: Portable AP view of the chest demonstrates cardiac silhouette size is the upper limits for normal. ET T and nasogastric tube remain present. There are bibasilar pleural-parenchymal opacities similar to t he prior study. No pneumothorax is visualized. Left chest tube remains present. CONCLUSION: Stable chest x-ray with no pneumothorax. Bibasilar opacities remain present and likely represent pleu ral effusions with associated volume loss and/or consolidation. Misbah Burnette MD on November 20, 2016 at 13:49 Board Certified Radiologist. This report was verified electronically.
--- NOTE | 2016-11-20 15:49 | PD.PROCEDR ---
Procedure Note Procedure Procedure: Fiberoptic Bronchoscopy/diagnostic and therapeutic for Pseudomonas pneumonia Diagnosis/Indication: Respiratory failure, unable to wean off the ventilator Consent: Informed consent obtained and a time out performed Anesthesia: Continue sedation with propofol at 50 mics grams per kilogram per minute and 250 g per hour fentanyl drip. Neuromuscular paralysis with rocuronium 50 mg Description of the Procedure: The patient was sedated and mechanically ventilated, was placed on 100% FIO2 and a volume control mode of ventilation. The fiberoptic bronchoscopy was inserted via endotracheal tube The trachea, right and left mainstem bronchi, and sub-segmental bronchi were evaluated. The endobronchial anatomy was normal. There was thick white secretions in the left mainstem which were suctioned using 30 cc of sterile saline. These were sent in a Lukens trap for study see orders remain of the left upper and lower lobe resection with copious amounts of sterile saline to clear. The scope was withdrawn to the mary. The right upper, middle and lower lobes reevaluated with minimal secretions noted. The patient tolerated the procedure well with no hemodynamic instability or hypoxia. There were no immediate complications noted. A chest x-ray has been ordered. I personally performed the procedure. Jac Sanders MD November 20, 2016 15:49
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
[2016-11-20] MEDS: LEVOFLOXACIN 750 MG PREMIX INJ 150 ML IV SCH (16:45)
[2016-11-20] MEDS ORDERED: MISCELLANEOUS PHARMACY INFORMATION XX PRN (18:00)
[2016-11-20] MEDS ORDERED: ASP: Documented ESBL, MDR A baumannii or P. aeruginosa PRN (18:00)
[2016-11-20] MEDS ORDERED: BUMETANIDE INJ 1 MG/4 ML VIAL IV PUSH ONE (18:15)
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
--- NOTE | 2016-11-20 19:08 | HHI.PR ---
Subjective Remarks 70 YOWM with VDRF,PTX, pulm contusion, left ribs fractur On Vent Sedated Chest tube no air leak CXR no PTX Gets agitated on weaning sedation. Had Bronch done by Dr.Biga Velasquez at Objective Vital Signs Vital Signs Date Time Temp Pulse Resp B/P Pulse Ox O2 Delivery O2 Flow Rate FiO2 11/20/16 18:00 94 11/20/16 17:21 92 60 11/20/16 16:00 96 11/20/16 16:00 97.8 104 16 117/69 92 11/20/16 16:00 100 11/20/16 14:00 106 11/20/16 13:00 99 100 11/20/16 12:00 102 11/20/16 12:00 100 11/20/16 12:00 98.5 102 16 119/67 99 11/20/16 11:33 94 60 11/20/16 10:00 103 11/20/16 08:00 98.6 101 16 124/77 91 11/20/16 08:00 88 11/20/16 08:00 60 11/20/16 07:44 92 60 11/20/16 06:00 105 11/20/16 04:00 98.6 107 16 115/70 91 11/20/16 04:00 55 11/20/16 04:00 107 11/20/16 03:44 91 50 11/20/16 02:00 110 11/20/16 00:00 55 11/20/16 00:00 97.4 104 16 108/76 90 11/20/16 00:00 104 11/19/16 23:09 90 50 11/19/16 22:00 93 11/19/16 20:00 98.9 107 16 109/77 96 11/19/16 20:00 107 11/19/16 20:00 55 11/19/16 19:48 94 50 I/O 11/19/16 11/19/16 11/19/16 11/20/16 11/20/16 11/20/16 07:00 15:00 23:00 07:00 15:00 23:00 Intake Total 937 ml 906 ml 1261 ml 852 ml 1573 ml Output Total 400 ml 1325 ml 501 ml 480 ml 1801 ml Balance 537 ml -419 ml 760 ml 372 ml -228 ml Intake Oral 0 ml 0 ml IV Total 495 ml 254 ml 812 ml 430 ml 856 ml Tube Feeding 382 ml 412 ml 419 ml 392 ml 417 ml Tube Irrigant 60 ml Other 240 ml 30 ml 30 ml 300 ml Output Urine Total 400 ml 1300 ml 500 ml 450 ml 1800 ml Stool Total 0 ml 0 ml 1 ml 1 ml Chest Tube Drainage Total 0 ml 25 ml 30 ml 0 ml # Bowel Movements 1 4 Result Diagram: 11/20/16 0724 11/20/16 1400 Objective Remarks GENERAL: WBWN WM on vent, sedated SKIN: Warm and dry. HEAD: Normocephalic. EYES: No scleral icterus. No injection or drainage. NECK: Supple, trachea midline. No JVD or lymphadenopathy. CARDIOVASCULAR: Regular rate and rhythm without murmurs, gallops, or rubs. RESPIRATORY: Breath sounds equal bilaterally. No accessory muscle use. Left chest tube, no air leak. GASTROINTESTINAL: Abdomen soft, non-tender, nondistended. MUSCULOSKELETAL: No cyanosis, or edema. BACK: Nontender without obvious deformity. No CVA tenderness. A/P Assessment and Plan VDRF COPD PTX, s/p left chest tube Pulm contusion Ribs Fracture PALN: Vent support CPAP trial Chest tube to suction Aerosol nebs Sedation with Precedex. Wean vent as tolerated. Check BAL cultures Ousmane Li MD November 20, 2016 19:08
[2016-11-20 19:37] LABS: BLOOD GAS BASE EXCESS 11.2 mmol/L (-2-2); BLOOD GAS CARBOXYHEMOGLOBIN 1.3 % (0-4); BLOOD GAS HCO3 35 mmol/L (22-26); BLOOD GAS METHEMOGLOBIN 1.1 % (0-2); BLOOD GAS O2 HGB SATURATION 91 % (90-100); BLOOD GAS OXYGEN CONTENT 14.2 Vol % (12.0-20.0); BLOOD GAS PCO2 47 mmHg (38-42); BLOOD GAS PO2 69 mmHg (61-120); CRITICAL VALUE NO; OXYGEN DEVICE VENTILATOR; TEMP CORR TO 98.6
[2016-11-20 19:38] LABS: DRAW SITE LT RADIAL; FIO2 70 %; NUMBER OF ARTERIAL PUNCTURES 1; STAT NO; ULNAR PULSE PRESENT; VENT SETTINGS PRVC/AC
[2016-11-20] MEDS: MEROPENEM INJ 1,000 MG in SODIUM CHLORIDE 0.9% INJ 100 ML IV SCH (19:59)
[2016-11-20 20:24] LABS: BRONCHOALVEOLAR LAVAGE RBC 600 /MM3; BRONCHOALVEOLAR LAVAGE WBC 14400 /MM3; BRONCHOAVEOLAR LYMPHOCYTES 0 %; BRONCHOAVEOLAR NEUTROPHILS 100 %
[2016-11-20] MEDS: SODIUM CHLORIDE 0.9% FLUSH 10 ML FLUSH IV FLUSH PRN (21:22)
[2016-11-21] VITALS (18 sets, daily range): BP systolic 104–139; BP diastolic 68–81; PULSE 89–129; RESP 16; TEMP 97.8–98.8; O2SAT 90–96
[2016-11-21] MEDS: PROPOFOL 1000 MG/100 ML INJ 100 ML IV SCH ×7 (01:42→23:59)
[2016-11-21] MEDS: fentaNYL DRIP 250 ML IV SCH ×3 (01:42→21:27)
[2016-11-21] MEDS: RESP: ALBUTEROL 2.5 MG/IPRATROPIUM 0.5 MG NEB (SCH) NEB ×6 (03:02→23:38)
[2016-11-21 04:06] LABS: AUTOMATED NEUTROPHIL # 18.2 TH/MM3 (1.8-7.7); BASOPHIL % 0.2 % (0.0-2.0); EOSINOPHIL % 0.2 % (0.0-4.0); HEMATOCRIT 34.1 % (39.0-51.0); LYMPH % 5.8 % (9.0-44.0); LYMPHOCYTE # 1.2 TH/MM3 (1.0-4.8); MEAN CELL VOLUME 90.3 FL (80.0-100.0); MEAN CORPUSCULAR HEMOGLOBIN 29.2 PG (27.0-34.0); MEAN CORPUSCULAR HGB CONC 32.4 % (32.0-36.0); NEUT % 86.8 % (16.0-70.0); PLATELET COUNT 280 TH/MM3 (150-450); RED BLOOD COUNT 3.78 MIL/MM3 (4.50-5.90); RED CELL DISTRIBUTION WIDTH 16.8 % (11.6-17.2)
[2016-11-21 04:10] LABS: HEMO FLAGS AUTO DIFF
[2016-11-21 04:29] LABS: ANION GAP 7 MEQ/L (5-15); AST (GOT) 26 U/L (15-37); BICARBONATE 35.6 MEQ/L (21.0-32.0); BLOOD UREA NITROGEN 37 MG/DL (7-18); CHLORIDE 97 MEQ/L (98-107); GLOMERULAR FILTRATION RATE 127 ML/MIN (>89); MAGNESIUM 2.4 MG/DL (1.5-2.5); POTASSIUM 3.8 MEQ/L (3.5-5.1); SODIUM (NA) 140 MEQ/L (136-145)
[2016-11-21 04:35] LABS: ALKALINE PHOSPHATASE 59 U/L (45-117); ALT (GPT) 28 U/L (12-78); TOTAL BILIRUBIN ADULT 0.3 MG/DL (0.2-1.0)
[2016-11-21] MEDS: MEROPENEM INJ 1,000 MG in SODIUM CHLORIDE 0.9% INJ 100 ML IV SCH ×3 (04:47→19:53)
[2016-11-21 04:56] LABS: BANDS 2 % (0-6); METAMYELOCYTES 4 % (0-1); MYELOCYTES 3 % (0-0); NEUTROPHIL # MANUAL DIFF 19.5 TH/MM3 (1.8-7.7); PLATELET ESTIMATE SMEAR NORMAL (NORMAL); PLATELET MORPHOLOGY NORMAL (NORMAL); POLYS (SEG NEUTROPHILS) 84 % (16-70); SCAN/DIFF FINAL DIFF MANUAL; WBC DIFF SAMPLE 100
[2016-11-21] MEDS: LEVOTHYROXINE SODIUM 75 MCG TAB PO SCH (05:57)
[2016-11-21] MEDS: INSULIN ASPART SUPPLEMENTAL SCALE SQ SCH ×4 (05:58→23:04)
[2016-11-21] MEDS: methylPREDNISolone SOD SUCC 40 MG/1 ML VIAL IV PUSH SCH ×3 (05:58→21:20)
--- NOTE | 2016-11-21 06:53 | RADRPT ---
EXAM DATE/TIME: 11/21/2016 05:17 [place] COMPARISON: CHEST SINGLE AP, November 20, 2016, 13:22. INDICATIONS : Pneumonia. MEDICAL HISTORY : None. SURGICAL HISTORY : None. ENCOUNTER: Subsequent ACUITY: 4 - 6 days PAIN SCORE: Non-responsive. LOCATION: Bilateral chest FINDINGS: Endotracheal tube and nasogastric tube remain in place. Bibasilar infiltrates and effusions persist w ith slight improvement from yesterday. Visualiz cardiac contours are grossly stable. CONCLUSION: Slight improvement in aeration Misbah Hansen MD on November 21, 2016 at 6:50 Board Certified Radiologist. This report was verified electronically.
[2016-11-21] MEDS: RESP: BUDESONIDE 0.5 MG/2 ML NEB NEB SCH ×2 (07:42→20:11)
[2016-11-21] MEDS: PANTOPRAZOLE SODIUM 40 MG VIAL IV PUSH SCH (07:45)
[2016-11-21] MEDS: LACTULOSE SYRUP 20 GM/30 ML CUP PO SCH (07:46)
[2016-11-21] MEDS: ENOXAPARIN SODIUM 40 MG/0.4 ML SYRINGE SQ SCH (07:46)
[2016-11-21] MEDS: SENNOSIDES SYRUP 8.8 MG/5 ML CUP PO SCH ×2 (07:47→19:54)
[2016-11-21] MEDS: METOPROLOL TARTRATE 50 MG TAB PO SCH ×2 (07:47→19:53)
[2016-11-21] MEDS: DOCUSATE SODIUM 100 MG/10 ML UDC PO SCH ×2 (07:47→19:54)
[2016-11-21] MEDS: SODIUM CHLORIDE 0.9% FLUSH 10 ML FLUSH IV FLUSH SCH ×2 (07:47→19:54)
[2016-11-21] MEDS: POLYETHYLENE GLYCOL 17 GM PKG PO SCH (07:47)
[2016-11-21] MEDS: CHLORHEXIDINE 0.12% (ORAL KIT) 15 ML CUP MT SCH ×2 (07:48→19:54)
--- NOTE | 2016-11-21 12:50 | HHI.IDPN ---
Subjective Subjective Remarks doing poorly requires 70-90% FiO2 afebrile On vent heavily sedated Antibiotics meropenem + levaquine Past Medical History COPD Allergies: Coded Allergies: Trazodone (Verified Allergy, Mild, 11/15/16) Wellbutrin (Verified Allergy, Mild, 11/15/16) Objective . Vital Signs Date Time Temp Pulse Resp B/P Pulse Ox O2 Delivery O2 Flow Rate FiO2 11/21/16 12:20 94 65 11/21/16 08:00 90 11/21/16 08:00 98.8 113 16 113/73 92 11/21/16 08:00 100 11/21/16 07:48 93 90 11/21/16 06:00 117 11/21/16 04:00 90 11/21/16 04:00 129 11/21/16 04:00 97.8 108 16 104/68 90 11/21/16 03:35 91 90 11/21/16 03:02 90 90 11/21/16 02:00 100 11/21/16 00:00 93 11/21/16 00:00 90 11/21/16 00:00 98.4 93 16 127/81 91 11/20/16 23:20 91 80 11/20/16 22:00 91 11/20/16 20:00 90 11/20/16 20:00 98.7 95 16 113/73 92 11/20/16 20:00 95 11/20/16 19:48 91 70 11/20/16 18:00 94 11/20/16 17:21 92 60 11/20/16 16:00 96 11/20/16 16:00 97.8 104 16 117/69 92 11/20/16 16:00 100 11/20/16 14:00 106 11/20/16 13:00 99 100 11/20/16 11/20/16 11/21/16 15:00 23:00 07:00 Intake Total 1573 ml 1093 ml 821 ml Output Total 1801 ml 2000 ml 660 ml Balance -228 ml -907 ml 161 ml IV Total 856 ml 702 ml 431 ml Tube Feeding 417 ml 361 ml 360 ml Other 300 ml 30 ml 30 ml Output Urine Total 1800 ml 1800 ml 650 ml Stool Total 1 ml Chest Tube Drainage Total 0 ml 200 ml 10 ml # Bowel Movements 4 . Laboratory Tests Test 11/20/16 11/21/16 07:24 03:50 White Blood Count 27.1 TH/MM3 21.0 TH/MM3 Red Blood Count 3.81 MIL/MM3 3.78 MIL/MM3 Hemoglobin 11.7 GM/DL 11.0 GM/DL Hematocrit 34.4 % 34.1 % Mean Corpuscular Volume 90.3 FL 90.3 FL Mean Corpuscular Hemoglobin 30.6 PG 29.2 PG Mean Corpuscular Hemoglobin 33.9 % 32.4 % Concent Red Cell Distribution Width 16.8 % 16.8 % Platelet Count 254 TH/MM3 280 TH/MM3 Mean Platelet Volume 8.9 FL 8.2 FL Neutrophils (%) (Auto) 88.4 % 86.8 % Lymphocytes (%) (Auto) 3.2 % 5.8 % Monocytes (%) (Auto) 7.6 % 7.0 % Eosinophils (%) (Auto) 0.6 % 0.2 % Basophils (%) (Auto) 0.2 % 0.2 % Neutrophils # (Auto) 24.0 TH/MM3 18.2 TH/MM3 Lymphocytes # (Auto) 0.9 TH/MM3 1.2 TH/MM3 Monocytes # (Auto) 2.1 TH/MM3 1.5 TH/MM3 Eosinophils # (Auto) 0.2 TH/MM3 0.0 TH/MM3 Basophils # (Auto) 0.1 TH/MM3 0.0 TH/MM3 CBC Comment AUTO DIFF AUTO DIFF Differential Total Cells 100 100 Counted Neutrophils % (Manual) 86 % 84 % Band Neutrophils % 3 % 2 % Lymphocytes % 3 % 5 % Monocytes % 3 % 2 % Neutrophils # (Manual) 25.5 TH/MM3 19.5 TH/MM3 Myelocytes 5 % 3 % Differential Comment FINAL DIFF FINAL DIFF MANUAL MANUAL Platelet Estimate NORMAL NORMAL Platelet Morphology Comment NORMAL NORMAL Target Cells 1+ Metamyelocytes 4 % Laboratory Tests Test 11/20/16 11/20/16 11/21/16 07:24 14:00 03:50 Sodium Level 138 MEQ/L 140 MEQ/L Potassium Level 5.5 MEQ/L 4.9 MEQ/L 3.8 MEQ/L Chloride Level 98 MEQ/L 97 MEQ/L Carbon Dioxide Level 29.8 MEQ/L 35.6 MEQ/L Anion Gap 10 MEQ/L 7 MEQ/L Blood Urea Nitrogen 43 MG/DL 37 MG/DL Creatinine 0.67 MG/DL 0.63 MG/DL Estimat Glomerular Filtration 118 ML/MIN 127 ML/MIN Rate Random Glucose 125 MG/DL 129 MG/DL Calcium Level 8.1 MG/DL 8.6 MG/DL Phosphorus Level 3.3 MG/DL 2.5 MG/DL Magnesium Level 2.7 MG/DL 2.4 MG/DL Total Bilirubin 0.3 MG/DL 0.3 MG/DL Aspartate Amino Transf 35 U/L 26 U/L (AST/SGOT) Alanine Aminotransferase 30 U/L 28 U/L (ALT/SGPT) Alkaline Phosphatase 61 U/L 59 U/L Total Protein 5.0 GM/DL 5.2 GM/DL Albumin 2.2 GM/DL 2.2 GM/DL Ammonia 23 MCMOL/L Microbiology Date/Time Procedure Status Source Growth 11/20/16 13:30 Gram Stain - Final Resulted Bronchial Washings Left Lower Lobe 11/20/16 13:30 Bronchial Culture Resulted Bronchial Washings Left Lower Lobe Pending 11/20/16 13:30 Acid Fast Stain Received Bronchial Washings Left Lower Lobe Pending 11/20/16 13:30 Mycobacterial Culture Received Bronchial Washings Left Lower Lobe Pending 11/20/16 13:30 Fungal Smear - Final Resulted Bronchial Washings Left Lower Lobe NO FUNGAL ELEMENTS SEEN. 11/20/16 13:30 Fungal Culture Resulted Bronchial Washings Left Lower Lobe Pending Imaging Last Impressions Chest X-Ray 11/21/16 0600 Signed Impressions: Service Date/Time: Monday, November 21, 2016 05:17 - CONCLUSION: Slight improvement in aeration Misbah Hansen MD CT Angiography 11/15/16 0245 Signed Impressions: Service Date/Time: Tuesday, November 15, 2016 03:17 - CONCLUSION: 1. There is no evidence for PE for technique. 2. Small left pneumothorax pleural effusion and left lung consolidation. Edward De LaO MD Physical Exam CONSTITUTIONAL/GENERAL: This is an adequately nourished patient, in no apparent distress. TUBES/LINES/DRAINS: SKIN: No jaundice, rashes, or lesions. EYES: Pupils equal and round and reactive. Extraocular motions intact. No scleral icterus. No injection or drainage. Fundi not examined. CARDIOVASCULAR: Regular rate and rhythm without murmurs, gallops, or rubs. No JVD. Peripheral pulses symmetric. well perfused perifery RESPIRATORY/CHEST: Symmetric, unlabored respirations. + few rhonch to auscultation. No wheezes CT in place on th e L side with serosang drainaghe; no air leak GASTROINTESTINAL: Abdomen soft, non-tender, nondistended. No hepato-splenomegaly , or palpable masses. No guarding. Bowel sounds present. GENITOURINARY: Without palpable bladder distension. Ashford catheter in place with large amount of clear yellow urine MUSCULOSKELETAL: Extremities without clubbing, cyanosis, + 1-2 periferal edema. No joint tenderness or effusion noted. No mottling or clubbing. NEUROLOGICAL:Heavily sedated; gets agitated during sedation vacations PSYCHIATRIC: unable to assess Assessment & Plan Remarks Severe L sided PNA, - growing MDRO PSAE leukocytosis, bandemia - 2/2 infx Acute VDRF, unstable from resp standpoind COPD, tobaccoism ` cont levaquine - cont meropenem - add tobramycin further rec's to follow based on BAL clx results Fannie Perez MD November 21, 2016 12:50
[2016-11-21] MEDS ORDERED: Tobramycin Consult Pharmacy 1 EA OTHER SCH (13:00)
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
[2016-11-21] MEDS: LEVOFLOXACIN 750 MG PREMIX INJ 150 ML IV SCH (16:00)
--- NOTE | 2016-11-21 17:05 | HHI.PR ---
Subjective Remarks 70 YOWM with VDRF,PTX, pulm contusion, left ribs fractur On Vent Sedated Chest tube no air leak CXR no PTX Gets agitated on weaning sedation. Objective Vital Signs Vital Signs Date Time Temp Pulse Resp B/P Pulse Ox O2 Delivery O2 Flow Rate FiO2 11/21/16 12:20 94 65 11/21/16 12:00 104 11/21/16 12:00 97.9 104 16 119/70 95 11/21/16 12:00 90 11/21/16 10:00 95 11/21/16 08:00 90 11/21/16 08:00 98.8 113 16 113/73 92 11/21/16 08:00 100 11/21/16 07:48 93 90 11/21/16 06:00 117 11/21/16 04:00 90 11/21/16 04:00 129 11/21/16 04:00 97.8 108 16 104/68 90 11/21/16 03:35 91 90 11/21/16 03:02 90 90 11/21/16 02:00 100 11/21/16 00:00 93 11/21/16 00:00 90 11/21/16 00:00 98.4 93 16 127/81 91 11/20/16 23:20 91 80 11/20/16 22:00 91 11/20/16 20:00 90 11/20/16 20:00 98.7 95 16 113/73 92 11/20/16 20:00 95 11/20/16 19:48 91 70 11/20/16 18:00 94 11/20/16 17:21 92 60 I/O 11/20/16 11/20/16 11/20/16 11/21/16 11/21/16 11/21/16 06:59 14:59 22:59 06:59 14:59 22:59 Intake Total 852 ml 1573 ml 1093 ml 821 ml Output Total 480 ml 1801 ml 2000 ml 660 ml Balance 372 ml -228 ml -907 ml 161 ml IV Total 430 ml 856 ml 702 ml 431 ml Tube Feeding 392 ml 417 ml 361 ml 360 ml Other 30 ml 300 ml 30 ml 30 ml Output Urine Total 450 ml 1800 ml 1800 ml 650 ml Stool Total 1 ml Chest Tube Drainage Total 30 ml 0 ml 200 ml 10 ml # Bowel Movements 1 4 Result Diagram: 5/29/17 0350 11/21/16 0350 Objective Remarks GENERAL: WBWN WM on vent, sedated SKIN: Warm and dry. HEAD: Normocephalic. EYES: No scleral icterus. No injection or drainage. NECK: Supple, trachea midline. No JVD or lymphadenopathy. CARDIOVASCULAR: Regular rate and rhythm without murmurs, gallops, or rubs. RESPIRATORY: Breath sounds equal bilaterally. No accessory muscle use. Left chest tube, no air leak. GASTROINTESTINAL: Abdomen soft, non-tender, nondistended. MUSCULOSKELETAL: No cyanosis, or edema. BACK: Nontender without obvious deformity. No CVA tenderness. A/P Assessment and Plan VDRF COPD PTX, s/p left chest tube Pulm contusion Ribs Fracture PALN: Vent support CPAP trial Chest tube to suction Aerosol nebs Sedation with Precedex. Wean vent as tolerated. Ousmane Li MD November 21, 2016 17:05
[2016-11-21] MEDS ORDERED: TOBRAMYCIN IV SCH (18:00)
[2016-11-21] MEDS ORDERED: SODIUM CHLORIDE 0.9% IV SCH (18:00)
[2016-11-21] MEDS: SODIUM CHLORIDE 0.9% FLUSH 10 ML FLUSH IV FLUSH PRN (21:20)
[2016-11-22] VITALS (17 sets, daily range): BP systolic 99–138; BP diastolic 70–79; PULSE 87–115; RESP 16; TEMP 97.9–99; O2SAT 91–99
[2016-11-22] MEDS: RESP: ALBUTEROL 2.5 MG/IPRATROPIUM 0.5 MG NEB (SCH) NEB ×5 (02:56→20:16)
[2016-11-22] MEDS: MEROPENEM INJ 1,000 MG in SODIUM CHLORIDE 0.9% INJ 100 ML IV SCH ×3 (03:51→20:45)
[2016-11-22] MEDS ORDERED: PHARMACY ORDERED LAB ONE (04:00)
[2016-11-22] MEDS: PROPOFOL 1000 MG/100 ML INJ 100 ML IV SCH ×5 (04:00→20:44)
[2016-11-22] MEDS: LEVOTHYROXINE SODIUM 75 MCG TAB PO SCH (05:39)
[2016-11-22] MEDS: fentaNYL DRIP 250 ML IV SCH ×3 (05:39→20:45)
[2016-11-22] MEDS: methylPREDNISolone SOD SUCC 40 MG/1 ML VIAL IV PUSH SCH ×3 (05:39→20:46)
[2016-11-22] MEDS: INSULIN ASPART SUPPLEMENTAL SCALE SQ SCH ×3 (05:39→18:00)
[2016-11-22] MEDS: DOCUSATE SODIUM 100 MG/10 ML UDC PO SCH ×2 (07:35→20:45)
[2016-11-22] MEDS: SENNOSIDES SYRUP 8.8 MG/5 ML CUP PO SCH ×2 (07:36→20:45)
[2016-11-22] MEDS: METOPROLOL TARTRATE 50 MG TAB PO SCH ×2 (07:37→20:46)
[2016-11-22] MEDS: LACTULOSE SYRUP 20 GM/30 ML CUP PO SCH (07:37)
[2016-11-22] MEDS: ENOXAPARIN SODIUM 40 MG/0.4 ML SYRINGE SQ SCH (07:37)
[2016-11-22] MEDS: POLYETHYLENE GLYCOL 17 GM PKG PO SCH (07:37)
[2016-11-22] MEDS: PANTOPRAZOLE SODIUM 40 MG VIAL IV PUSH SCH (07:37)
[2016-11-22] MEDS: SODIUM CHLORIDE 0.9% FLUSH 10 ML FLUSH IV FLUSH SCH ×2 (07:38→20:45)
[2016-11-22] MEDS: RESP: BUDESONIDE 0.5 MG/2 ML NEB NEB SCH ×3 (07:38→20:16)
[2016-11-22] MEDS: CHLORHEXIDINE 0.12% (ORAL KIT) 15 ML CUP MT SCH ×2 (07:39→20:00)
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
--- NOTE | 2016-11-22 14:42 | HHI.IDPN ---
Subjective Subjective Remarks down to 50% FiO2 afebrile Antibiotics meropenem + levaquine+ tobra Past Medical History COPD Allergies: Coded Allergies: Trazodone (Verified Allergy, Mild, 11/15/16) Wellbutrin (Verified Allergy, Mild, 11/15/16) Objective . Vital Signs Date Time Temp Pulse Resp B/P Pulse Ox O2 Delivery O2 Flow Rate FiO2 11/22/16 12:00 65 11/22/16 12:00 91 11/22/16 12:00 98.0 91 16 99/71 93 11/22/16 11:46 94 50 11/22/16 10:00 92 11/22/16 08:38 97 65 11/22/16 08:00 65 11/22/16 08:00 98.3 87 16 103/73 95 11/22/16 08:00 87 11/22/16 06:00 88 11/22/16 04:00 70 11/22/16 04:00 115 11/22/16 04:00 98.9 115 16 119/77 96 11/22/16 02:59 94 70 11/22/16 02:00 90 11/22/16 00:00 70 11/22/16 00:00 99.0 93 16 125/79 94 11/22/16 00:00 93 11/21/16 23:40 95 70 11/21/16 22:00 89 11/21/16 20:13 96 70 11/21/16 20:00 70 11/21/16 20:00 98.5 92 16 115/72 95 11/21/16 20:00 92 11/21/16 18:00 91 11/21/16 16:00 70 11/21/16 16:00 89 11/21/16 16:00 98.5 102 16 139/70 92 11/21/16 11/21/16 11/22/16 15:00 23:00 07:00 Intake Total 2316 ml 1327 ml Output Total 960 ml 570 ml Balance 1356 ml 757 ml IV Total 1344 ml 815 ml Tube Feeding 822 ml 482 ml Other 150 ml 30 ml Output Urine Total 900 ml 550 ml Chest Tube Drainage Total 60 ml 20 ml . Laboratory Tests Test 11/21/16 03:50 White Blood Count 21.0 TH/MM3 Red Blood Count 3.78 MIL/MM3 Hemoglobin 11.0 GM/DL Hematocrit 34.1 % Mean Corpuscular Volume 90.3 FL Mean Corpuscular Hemoglobin 29.2 PG Mean Corpuscular Hemoglobin 32.4 % Concent Red Cell Distribution Width 16.8 % Platelet Count 280 TH/MM3 Mean Platelet Volume 8.2 FL Neutrophils (%) (Auto) 86.8 % Lymphocytes (%) (Auto) 5.8 % Monocytes (%) (Auto) 7.0 % Eosinophils (%) (Auto) 0.2 % Basophils (%) (Auto) 0.2 % Neutrophils # (Auto) 18.2 TH/MM3 Lymphocytes # (Auto) 1.2 TH/MM3 Monocytes # (Auto) 1.5 TH/MM3 Eosinophils # (Auto) 0.0 TH/MM3 Basophils # (Auto) 0.0 TH/MM3 CBC Comment AUTO DIFF Differential Total Cells 100 Counted Neutrophils % (Manual) 84 % Band Neutrophils % 2 % Lymphocytes % 5 % Monocytes % 2 % Neutrophils # (Manual) 19.5 TH/MM3 Metamyelocytes 4 % Myelocytes 3 % Differential Comment FINAL DIFF MANUAL Platelet Estimate NORMAL Platelet Morphology Comment NORMAL Laboratory Tests Test 11/21/16 03:50 Sodium Level 140 MEQ/L Potassium Level 3.8 MEQ/L Chloride Level 97 MEQ/L Carbon Dioxide Level 35.6 MEQ/L Anion Gap 7 MEQ/L Blood Urea Nitrogen 37 MG/DL Creatinine 0.63 MG/DL Estimat Glomerular Filtration 127 ML/MIN Rate Random Glucose 129 MG/DL Calcium Level 8.6 MG/DL Phosphorus Level 2.5 MG/DL Magnesium Level 2.4 MG/DL Total Bilirubin 0.3 MG/DL Aspartate Amino Transf 26 U/L (AST/SGOT) Alanine Aminotransferase 28 U/L (ALT/SGPT) Alkaline Phosphatase 59 U/L Ammonia 23 MCMOL/L Total Protein 5.2 GM/DL Albumin 2.2 GM/DL Microbiology Date/Time Procedure Status Source Growth 11/20/16 13:30 Gram Stain - Final Resulted Bronchial Washings Left Lower Lobe 11/20/16 13:30 Bronchial Culture - Preliminary Resulted Pseudomonas Species 11/20/16 13:30 Acid Fast Stain - Final Resulted Bronchial Washings Left Lower Lobe NO ACID FAST BACILLI SEEN 11/20/16 13:30 Mycobacterial Culture Resulted Bronchial Washings Left Lower Lobe Pending 11/20/16 13:30 Fungal Smear - Final Resulted Bronchial Washings Left Lower Lobe NO FUNGAL ELEMENTS SEEN. 11/20/16 13:30 Fungal Culture Resulted Bronchial Washings Left Lower Lobe Pending Imaging Last Impressions Chest X-Ray 11/21/16 0600 Signed Impressions: Service Date/Time: Monday, November 21, 2016 05:17 - CONCLUSION: Slight improvement in aeration Misbah Hansen MD CT Angiography 11/15/16 0245 Signed Impressions: Service Date/Time: Tuesday, November 15, 2016 03:17 - CONCLUSION: 1. There is no evidence for PE for technique. 2. Small left pneumothorax pleural effusion and left lung consolidation. Edward De La O MD Physical Exam CONSTITUTIONAL/GENERAL: This is an adequately nourished patient, in no apparent distress. TUBES/LINES/DRAINS: SKIN: No jaundice, rashes, or lesions. EYES: Pupils equal and round and reactive. Extraocular motions intact. No scleral icterus. No injection or drainage. Fundi not examined. CARDIOVASCULAR: Regular rate and rhythm without murmurs, gallops, or rubs. No JVD. Peripheral pulses symmetric. well perfused perifery RESPIRATORY/CHEST: Symmetric, unlabored respirations. + few rhonch to auscultation. No wheezes CT in place on th e L side with serosang drainaghe; no air leak GASTROINTESTINAL: Abdomen soft, non-tender, nondistended. No hepato-splenomegaly , or palpable masses. No guarding. Bowel sounds present. GENITOURINARY: Without palpable bladder distension. Ashford catheter in place with large amount of clear yellow urine MUSCULOSKELETAL: Extremities without clubbing, cyanosis, + 1-2 periferal edema. No joint tenderness or effusion noted. No mottling or clubbing. NEUROLOGICAL:Heavily sedated; gets agitated during sedation vacations PSYCHIATRIC: unable to assess Assessment & Plan Remarks Severe L sided PNA, - growing MDRO PSAE - BAL with high WBC leukocytosis, bandemia - 2/2 infx Acute VDRF, more stable from resp standpoind COPD, tobaccoism ` cont levaquine - cont meropenem - cont tobramycin further rec's to follow based on BAL clx results - monitor closely creatinine - fu BAL clx and will adjust further abx Fannie Perez MD November 22, 2016 14:42
[2016-11-22] MEDS: LEVOFLOXACIN 750 MG PREMIX INJ 150 ML IV SCH (16:06)
[2016-11-22] MEDS: SODIUM CHLORIDE 0.9% IV SCH (18:00)
[2016-11-22] MEDS: TOBRAMYCIN IV SCH (18:00)
--- NOTE | 2016-11-22 19:10 | HHI.PR ---
Subjective Remarks 70 YOWM with VDRF,PTX, pulm contusion, left ribs fractur On Vent Sedated Chest tube no air leak CXR no PTX Gets agitated on weaning sedation. Objective Vital Signs Vital Signs Date Time Temp Pulse Resp B/P Pulse Ox O2 Delivery O2 Flow Rate FiO2 11/22/16 18:00 109 11/22/16 16:00 88 11/22/16 15:38 92 70 11/22/16 14:00 102 11/22/16 12:00 65 11/22/16 12:00 91 11/22/16 12:00 98.0 91 16 99/71 93 11/22/16 11:46 94 50 11/22/16 10:00 92 11/22/16 08:38 97 65 11/22/16 08:00 65 11/22/16 08:00 98.3 87 16 103/73 95 11/22/16 08:00 87 11/22/16 06:00 88 11/22/16 04:00 70 11/22/16 04:00 115 11/22/16 04:00 98.9 115 16 119/77 96 11/22/16 02:59 94 70 11/22/16 02:00 90 11/22/16 00:00 70 11/22/16 00:00 99.0 93 16 125/79 94 11/22/16 00:00 93 11/21/16 23:40 95 70 11/21/16 22:00 89 11/21/16 20:13 96 70 11/21/16 20:00 70 11/21/16 20:00 98.5 92 16 115/72 95 11/21/16 20:00 92 I/O 11/21/16 11/21/16 11/21/16 11/22/16 11/22/16 11/22/16 07:00 15:00 23:00 07:00 15:00 23:00 Intake Total 821 ml 2316 ml 1327 ml 1708 ml Output Total 660 ml 960 ml 570 ml 500 ml Balance 161 ml 1356 ml 757 ml 1208 ml IV Total 431 ml 1344 ml 815 ml 1033 ml Tube Feeding 360 ml 822 ml 482 ml 475 ml Other 30 ml 150 ml 30 ml 200 ml Output Urine Total 650 ml 900 ml 550 ml 500 ml Chest Tube Drainage Total 10 ml 60 ml 20 ml Result Diagram: 5/29/17 03511/21/16 0350 Objective Remarks GENERAL: WBWN WM on vent, sedated SKIN: Warm and dry. HEAD: Normocephalic. EYES: No scleral icterus. No injection or drainage. NECK: Supple, trachea midline. No JVD or lymphadenopathy. CARDIOVASCULAR: Regular rate and rhythm without murmurs, gallops, or rubs. RESPIRATORY: Breath sounds equal bilaterally. No accessory muscle use. Left chest tube, no air leak. GASTROINTESTINAL: Abdomen soft, non-tender, nondistended. MUSCULOSKELETAL: No cyanosis, or edema. BACK: Nontender without obvious deformity. No CVA tenderness. A/P Assessment and Plan VDRF COPD PTX, s/p left chest tube Pulm contusion Ribs Fracture PALN: Vent support CPAP trial Chest tube to suction Aerosol nebs Sedation with Precedex. Wean vent as tolerated. Abx Tobra, Levaquin and Meropenem per ID Ousmane Li MD November 22, 2016 19:10
[2016-11-23] VITALS (26 sets, daily range): BP systolic 105–143; BP diastolic 77–97; PULSE 87–110; RESP 16–18; TEMP 97–98.4; O2SAT 92–100
[2016-11-23] MEDS: RESP: ALBUTEROL 2.5 MG/IPRATROPIUM 0.5 MG NEB (SCH) NEB ×5 (00:30→15:28)
[2016-11-23] MEDS: LEVOTHYROXINE SODIUM 75 MCG TAB PO SCH (05:03)
[2016-11-23] MEDS: MEROPENEM INJ 1,000 MG in SODIUM CHLORIDE 0.9% INJ 100 ML IV SCH ×3 (05:03→19:33)
[2016-11-23] MEDS: methylPREDNISolone SOD SUCC 40 MG/1 ML VIAL IV PUSH SCH ×3 (05:03→23:23)
[2016-11-23] MEDS: PROPOFOL 1000 MG/100 ML INJ 100 ML IV SCH ×6 (05:12→23:23)
[2016-11-23] MEDS: INSULIN ASPART SUPPLEMENTAL SCALE SQ SCH ×5 (06:00→23:31)
[2016-11-23 07:02] LABS: ALT (GPT) 40 U/L (12-78); ANION GAP 8 MEQ/L (5-15); AST (GOT) 29 U/L (15-37); BICARBONATE 31.4 MEQ/L (21.0-32.0); BLOOD UREA NITROGEN 31 MG/DL (7-18); CHLORIDE 101 MEQ/L (98-107); GLOMERULAR FILTRATION RATE 162 ML/MIN (>89); POTASSIUM 4.5 MEQ/L (3.5-5.1); SODIUM (NA) 140 MEQ/L (136-145)
[2016-11-23 07:03] LABS: ALKALINE PHOSPHATASE 53 U/L (45-117); TOTAL BILIRUBIN ADULT 0.3 MG/DL (0.2-1.0)
[2016-11-23 07:16] LABS: AUTOMATED NEUTROPHIL # 15.4 TH/MM3 (1.8-7.7); BASOPHIL # 0.1 TH/MM3 (0-0.2); BASOPHIL % 0.4 % (0.0-2.0); EOSINOPHIL # 0.5 TH/MM3 (0-0.4); EOSINOPHIL % 2.5 % (0.0-4.0); HEMATOCRIT 33.9 % (39.0-51.0); LYMPH % 5.8 % (9.0-44.0); MEAN CELL VOLUME 89.9 FL (80.0-100.0); MEAN CORPUSCULAR HEMOGLOBIN 29.9 PG (27.0-34.0); MEAN CORPUSCULAR HGB CONC 33.3 % (32.0-36.0); MONO % 5.2 % (0.0-8.0); NEUT % 86.1 % (16.0-70.0); PLATELET COUNT 341 TH/MM3 (150-450); RED BLOOD COUNT 3.77 MIL/MM3 (4.50-5.90); RED CELL DISTRIBUTION WIDTH 17.4 % (11.6-17.2); WHITE BLOOD COUNT 17.9 TH/MM3 (4.0-11.0)
[2016-11-23 07:26] LABS: HEMO FLAGS AUTO DIFF
[2016-11-23] MEDS: RESP: BUDESONIDE 0.5 MG/2 ML NEB NEB SCH ×2 (07:45→20:13)
[2016-11-23] MEDS: CHLORHEXIDINE 0.12% (ORAL KIT) 15 ML CUP MT SCH ×2 (08:00→20:00)
[2016-11-23 08:28] LABS: BANDS 1 % (0-6); METAMYELOCYTES 1 % (0-1); MYELOCYTES 9 % (0-0)
[2016-11-23 08:32] LABS: CORRECTED NUCLEATED RBC 1 /100 WBC (0-0); NEUTROPHIL # MANUAL DIFF 16.5 TH/MM3 (1.8-7.7); POLYS (SEG NEUTROPHILS) 81 % (16-70); WBC DIFF SAMPLE 100
[2016-11-23 08:33] LABS: HOWELL-JOLLY BODIES PRESENT (NONE SEEN); PLATELET ESTIMATE SMEAR NORMAL (NORMAL); PLATELET MORPHOLOGY NORMAL (NORMAL); SCAN/DIFF FINAL DIFF MANUAL
[2016-11-23] MEDS: OLANZapine 10 MG TAB OG-TUBE SCH (09:00)
[2016-11-23] MEDS: SODIUM CHLORIDE 0.9% FLUSH 10 ML FLUSH IV FLUSH SCH ×2 (09:00→19:33)
[2016-11-23] MEDS: SENNOSIDES SYRUP 8.8 MG/5 ML CUP PO SCH ×2 (09:18→19:34)
[2016-11-23] MEDS: METOPROLOL TARTRATE 50 MG TAB PO SCH ×2 (09:18→19:34)
[2016-11-23] MEDS: fentaNYL DRIP 250 ML IV SCH ×2 (09:18→19:33)
[2016-11-23] MEDS: PANTOPRAZOLE SODIUM 40 MG VIAL IV PUSH SCH (09:18)
[2016-11-23] MEDS: POLYETHYLENE GLYCOL 17 GM PKG PO SCH (09:18)
[2016-11-23] MEDS: DOCUSATE SODIUM 100 MG/10 ML UDC PO SCH ×2 (09:18→19:34)
[2016-11-23] MEDS: LACTULOSE SYRUP 20 GM/30 ML CUP PO SCH (09:18)
[2016-11-23] MEDS: ENOXAPARIN SODIUM 40 MG/0.4 ML SYRINGE SQ SCH (09:19)
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
[2016-11-23] MEDS: TOBRAMYCIN IV SCH (16:40)
[2016-11-23] MEDS: SODIUM CHLORIDE 0.9% IV SCH (16:40)
[2016-11-23] MEDS: LEVOFLOXACIN 750 MG PREMIX INJ 150 ML IV SCH (16:40)
[2016-11-23] MEDS: ENOXAPARIN SODIUM 80 MG/0.8 ML SYRINGE SQ SCH (19:34)
[2016-11-23] MEDS: RESP: ALBUTEROL 2.5 MG/IPRATROPIUM 0.5 MG NEB (PRN) NEB ×2 (20:13→23:29)
--- NOTE | 2016-11-23 20:25 | HHI.PR ---
Subjective Remarks 70 YOWM with VDRF,PTX, pulm contusion, left ribs fractur On Vent Sedated Chest tube no air leak CXR no PTX Gets agitated on weaning sedation. Started on Zyprexa. Objective Vital Signs Vital Signs Date Time Temp Pulse Resp B/P Pulse Ox O2 Delivery O2 Flow Rate FiO2 11/23/16 18:00 96 11/23/16 16:00 65 11/23/16 16:00 110 11/23/16 16:00 98.3 97 17 119/87 92 11/23/16 15:28 92 55 11/23/16 14:00 93 11/23/16 12:00 87 11/23/16 12:00 98.2 87 16 105/77 94 11/23/16 12:00 65 11/23/16 11:49 94 55 11/23/16 10:00 94 11/23/16 08:00 93 11/23/16 08:00 65 11/23/16 08:00 98.4 94 18 129/79 93 11/23/16 07:45 96 60 11/23/16 06:00 92 11/23/16 04:34 98 11/23/16 04:25 100 65 11/23/16 04:00 97.0 92 16 143/84 96 11/23/16 04:00 65 11/23/16 04:00 92 11/23/16 03:30 96 11/23/16 03:01 95 11/23/16 02:30 95 11/23/16 02:00 101 11/23/16 01:30 99 11/23/16 01:00 102 11/23/16 00:31 96 70 11/23/16 00:30 99 11/23/16 00:00 65 11/23/16 00:00 103 11/23/16 00:00 97.2 103 16 121/97 95 11/22/16 22:00 99 I/O 11/22/16 11/22/16 11/22/16 11/23/16 11/23/16 11/23/16 07:00 15:00 23:00 07:00 15:00 23:00 Intake Total 1327 ml 1708 ml 842 ml 809 ml 1397 ml Output Total 570 ml 500 ml 610 ml 415 ml 560 ml Balance 757 ml 1208 ml 232 ml 394 ml 837 ml Intake Oral 0 ml 0 ml IV Total 815 ml 1033 ml 307 ml 371 ml 863 ml Tube Feeding 482 ml 475 ml 415 ml 378 ml 534 ml Other 30 ml 200 ml 120 ml 60 ml Output Urine Total 550 ml 500 ml 600 ml 400 ml 550 ml Chest Tube Drainage Total 20 ml 10 ml 15 ml 10 ml # Bowel Movements 1 0 1 Result Diagram: 11/23/1643511/23/16435 Objective Remarks GENERAL: WBWN WM on vent, sedated SKIN: Warm and dry. HEAD: Normocephalic. EYES: No scleral icterus. No injection or drainage. NECK: Supple, trachea midline. No JVD or lymphadenopathy. CARDIOVASCULAR: Regular rate and rhythm without murmurs, gallops, or rubs. RESPIRATORY: Breath sounds equal bilaterally. No accessory muscle use. Left chest tube, no air leak. GASTROINTESTINAL: Abdomen soft, non-tender, nondistended. MUSCULOSKELETAL: No cyanosis, or edema. BACK: Nontender without obvious deformity. No CVA tenderness. A/P Assessment and Plan VDRF COPD PTX, s/p left chest tube Pulm contusion Ribs Fracture PALN: Vent support CPAP trial Chest tube to suction Aerosol nebs Sedation with Precedex. Wean vent as tolerated. Abx Tobra, Levaquin and Meropenem per Ousmane Palacios MD November 23, 2016 20:25
[2016-11-24] VITALS (19 sets, daily range): BP systolic 110–137; BP diastolic 74–84; PULSE 88–115; RESP 16–17; TEMP 97.8–99.1; O2SAT 90–96
[2016-11-24] MEDS: MEROPENEM INJ 1,000 MG in SODIUM CHLORIDE 0.9% INJ 100 ML IV SCH ×3 (03:06→21:07)
[2016-11-24] MEDS: PROPOFOL 1000 MG/100 ML INJ 100 ML IV SCH ×7 (03:06→21:25)
[2016-11-24] MEDS: RESP: ALBUTEROL 2.5 MG/IPRATROPIUM 0.5 MG NEB (PRN) NEB ×2 (03:08→20:06)
[2016-11-24 04:59] LABS: AUTOMATED NEUTROPHIL # 14.4 TH/MM3 (1.8-7.7); BASOPHIL % 0.2 % (0.0-2.0); EOSINOPHIL # 0.2 TH/MM3 (0-0.4); EOSINOPHIL % 0.9 % (0.0-4.0); HEMATOCRIT 36.1 % (39.0-51.0); LYMPH % 1.6 % (9.0-44.0); LYMPHOCYTE # 0.3 TH/MM3 (1.0-4.8); MEAN CELL VOLUME 91.1 FL (80.0-100.0); MEAN CORPUSCULAR HEMOGLOBIN 29.5 PG (27.0-34.0); MEAN CORPUSCULAR HGB CONC 32.4 % (32.0-36.0); MONO % 13.5 % (0.0-8.0); NEUT % 83.8 % (16.0-70.0); PLATELET COUNT 294 TH/MM3 (150-450); RED BLOOD COUNT 3.96 MIL/MM3 (4.50-5.90); RED CELL DISTRIBUTION WIDTH 17.3 % (11.6-17.2); WHITE BLOOD COUNT 17.1 TH/MM3 (4.0-11.0)
[2016-11-24 05:12] LABS: HEMO FLAGS AUTO DIFF
[2016-11-24] MEDS: methylPREDNISolone SOD SUCC 40 MG/1 ML VIAL IV PUSH SCH ×3 (05:27→21:07)
[2016-11-24] MEDS: INSULIN ASPART SUPPLEMENTAL SCALE SQ SCH ×3 (05:27→17:27)
[2016-11-24] MEDS: LEVOTHYROXINE SODIUM 75 MCG TAB PO SCH (05:27)
[2016-11-24 05:33] LABS: ALKALINE PHOSPHATASE 49 U/L (45-117); ALT (GPT) 48 U/L (12-78); ANION GAP 8 MEQ/L (5-15); AST (GOT) 29 U/L (15-37); BICARBONATE 29.4 MEQ/L (21.0-32.0); BLOOD UREA NITROGEN 33 MG/DL (7-18); CHLORIDE 100 MEQ/L (98-107); GLOMERULAR FILTRATION RATE 169 ML/MIN (>89); POTASSIUM 4.6 MEQ/L (3.5-5.1); SODIUM (NA) 137 MEQ/L (136-145); TOTAL BILIRUBIN ADULT 0.4 MG/DL (0.2-1.0)
[2016-11-24 07:00] LABS: BANDS 12 % (0-6); METAMYELOCYTES 3 % (0-1); MYELOCYTES 7 % (0-0); NEUTROPHIL # MANUAL DIFF 15.9 TH/MM3 (1.8-7.7); PLATELET ESTIMATE SMEAR NORMAL (NORMAL); POLYS (SEG NEUTROPHILS) 71 % (16-70); SCAN/DIFF FINAL DIFF MANUAL; WBC DIFF SAMPLE 100
[2016-11-24 07:01] LABS: PLATELET MORPHOLOGY NORMAL (NORMAL)
[2016-11-24] MEDS: RESP: BUDESONIDE 0.5 MG/2 ML NEB NEB SCH ×2 (07:41→20:06)
[2016-11-24] MEDS: POLYETHYLENE GLYCOL 17 GM PKG PO SCH (08:49)
[2016-11-24] MEDS: OLANZapine 10 MG TAB OG-TUBE SCH (08:49)
[2016-11-24] MEDS: LACTULOSE SYRUP 20 GM/30 ML CUP PO SCH (08:49)
[2016-11-24] MEDS: ENOXAPARIN SODIUM 80 MG/0.8 ML SYRINGE SQ SCH ×2 (08:49→21:07)
[2016-11-24] MEDS: CHLORHEXIDINE 0.12% (ORAL KIT) 15 ML CUP MT SCH ×2 (08:49→21:08)
[2016-11-24] MEDS: DOCUSATE SODIUM 100 MG/10 ML UDC PO SCH ×2 (08:49→21:07)
[2016-11-24] MEDS: SODIUM CHLORIDE 0.9% FLUSH 10 ML FLUSH IV FLUSH SCH ×2 (08:49→21:00)
[2016-11-24] MEDS: SENNOSIDES SYRUP 8.8 MG/5 ML CUP PO SCH ×2 (08:50→21:08)
[2016-11-24] MEDS: METOPROLOL TARTRATE 50 MG TAB PO SCH ×2 (08:50→21:07)
[2016-11-24] MEDS: PANTOPRAZOLE SODIUM 40 MG VIAL IV PUSH SCH (08:50)
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
[2016-11-24] MEDS: fentaNYL DRIP 250 ML IV SCH (14:35)
[2016-11-24] MEDS: LEVOFLOXACIN 750 MG PREMIX INJ 150 ML IV SCH (15:30)
[2016-11-24] MEDS: TOBRAMYCIN IV SCH (17:31)
[2016-11-24] MEDS: SODIUM CHLORIDE 0.9% IV SCH (17:31)
--- NOTE | 2016-11-24 19:17 | HHI.IDPN ---
Subjective Subjective Remarks down to 40% FiO2 not much ETT seretions afebrile still 60 cc of serosang fluid output thru L sided chest tube no fever tolerating TF at goal normal BM Antibiotics meropenem + levaquine+ tobra Past Medical History COPD Allergies: Coded Allergies: Trazodone (Verified Allergy, Mild, 11/15/16) Wellbutrin (Verified Allergy, Mild, 11/15/16) Objective . Vital Signs Date Time Temp Pulse Resp B/P Pulse Ox O2 Delivery O2 Flow Rate FiO2 11/24/16 18:00 88 11/24/16 16:00 97 11/24/16 16:00 98.5 97 16 121/78 94 11/24/16 16:00 40 11/24/16 15:56 96 40 11/24/16 14:00 98 11/24/16 12:00 99 11/24/16 12:00 98.8 99 16 121/81 96 11/24/16 12:00 40 11/24/16 11:18 96 40 11/24/16 10:00 94 11/24/16 08:00 115 11/24/16 08:00 40 11/24/16 08:00 99.1 115 16 110/80 93 11/24/16 07:42 93 40 11/24/16 06:00 112 11/24/16 04:00 114 11/24/16 04:00 40 11/24/16 04:00 97.9 114 16 137/74 95 11/24/16 03:58 95 50 11/24/16 03:08 90 40 11/24/16 02:00 100 11/24/16 00:00 40 11/24/16 00:00 97.8 109 16 133/84 93 11/24/16 00:00 109 11/23/16 23:25 99 40 11/23/16 22:00 97 11/23/16 20:12 98 50 11/23/16 20:00 65 11/23/16 20:00 94 11/23/16 20:00 98.0 94 16 113/82 97 11/23/16 11/23/16 11/24/16 14:59 22:59 06:59 Intake Total 1397 ml 995 ml 952 ml Output Total 560 ml 510 ml 305 ml Balance 837 ml 485 ml 647 ml Intake Oral 0 ml 0 ml IV Total 863 ml 550 ml 530 ml Tube Feeding 534 ml 385 ml 362 ml Other 60 ml 60 ml Output Urine Total 550 ml 500 ml 300 ml Chest Tube Drainage Total 10 ml 10 ml 5 ml # Bowel Movements 1 0 0 . Laboratory Tests Test 11/23/16 11/24/16 04:36 03:06 White Blood Count 17.9 TH/MM3 17.1 TH/MM3 Red Blood Count 3.77 MIL/MM3 3.96 MIL/MM3 Hemoglobin 11.3 GM/DL 11.7 GM/DL Hematocrit 33.9 % 36.1 % Mean Corpuscular Volume 89.9 FL 91.1 FL Mean Corpuscular Hemoglobin 29.9 PG 29.5 PG Mean Corpuscular Hemoglobin 33.3 % 32.4 % Concent Red Cell Distribution Width 17.4 % 17.3 % Platelet Count 341 TH/MM3 294 TH/MM3 Mean Platelet Volume 9.0 FL 8.7 FL Neutrophils (%) (Auto) 86.1 % 83.8 % Lymphocytes (%) (Auto) 5.8 % 1.6 % Monocytes (%) (Auto) 5.2 % 13.5 % Eosinophils (%) (Auto) 2.5 % 0.9 % Basophils (%) (Auto) 0.4 % 0.2 % Neutrophils # (Auto) 15.4 TH/MM3 14.4 TH/MM3 Lymphocytes # (Auto) 1.0 TH/MM3 0.3 TH/MM3 Monocytes # (Auto) 0.9 TH/MM3 2.3 TH/MM3 Eosinophils # (Auto) 0.5 TH/MM3 0.2 TH/MM3 Basophils # (Auto) 0.1 TH/MM3 0.0 TH/MM3 CBC Comment AUTO DIFF AUTO DIFF Differential Total Cells 100 100 Counted Neutrophils % (Manual) 81 % 71 % Band Neutrophils % 1 % 12 % Lymphocytes % 5 % 4 % Monocytes % 3 % 3 % Neutrophils # (Manual) 16.5 TH/MM3 15.9 TH/MM3 Metamyelocytes 1 % 3 % Myelocytes 9 % 7 % Nucleated Red Blood Cells 1 /100 WBC Differential Comment FINAL DIFF FINAL DIFF MANUAL MANUAL Platelet Estimate NORMAL NORMAL Platelet Morphology Comment NORMAL NORMAL [place]order[place] Bodies PRESENT Red Cell Morphology Comment NORMAL Laboratory Tests Test 11/23/16 11/24/16 04:36 03:06 Sodium Level 140 MEQ/L 137 MEQ/L Potassium Level 4.5 MEQ/L 4.6 MEQ/L Chloride Level 101 MEQ/L 100 MEQ/L Carbon Dioxide Level 31.4 MEQ/L 29.4 MEQ/L Anion Gap 8 MEQ/L 8 MEQ/L Blood Urea Nitrogen 31 MG/DL 33 MG/DL Creatinine 0.51 MG/DL 0.49 MG/DL Estimat Glomerular Filtration 162 ML/MIN 169 ML/MIN Rate Random Glucose 126 MG/DL 113 MG/DL Calcium Level 8.3 MG/DL 8.7 MG/DL Total Bilirubin 0.3 MG/DL 0.4 MG/DL Aspartate Amino Transf 29 U/L 29 U/L (AST/SGOT) Alanine Aminotransferase 40 U/L 48 U/L (ALT/SGPT) Alkaline Phosphatase 53 U/L 49 U/L Total Protein 5.0 GM/DL 5.4 GM/DL Albumin 2.0 GM/DL 2.1 GM/DL Imaging Last Impressions Chest X-Ray 11/21/16 0600 Signed Impressions: Service Date/Time: Monday, November 21, 2016 05:17 - CONCLUSION: Slight improvement in aeration Misbah Hansen MD CT Angiography 11/15/16 0245 Signed Impressions: Service Date/Time: Tuesday, November 15, 2016 03:17 - CONCLUSION: 1. There is no evidence for PE for technique. 2. Small left pneumothorax pleural effusion and left lung consolidation. Edward De La O MD Physical Exam CONSTITUTIONAL/GENERAL: This is an adequately nourished patient, in no apparent distress. TUBES/LINES/DRAINS: SKIN: No jaundice, rashes, or lesions. CARDIOVASCULAR: Regular rate and rhythm without murmurs, gallops, or rubs. No JVD. Peripheral pulses symmetric. well perfused perifery RESPIRATORY/CHEST: Symmetric, unlabored respirations. coarse BS to auscultation. No wheezes CT in place on th e L side with serosang drainaghe; no air leak GASTROINTESTINAL: Abdomen soft, non-tender, nondistended. No hepato-splenomegaly , or palpable masses. No guarding. Bowel sounds present. GENITOURINARY: Without palpable bladder distension. Ashford catheter in place with large amount of clear yellow urine MUSCULOSKELETAL: Extremities without clubbing, cyanosis, + 1-2 periferal edema. No joint tenderness or effusion noted. No mottling or clubbing. NEUROLOGICAL:Heavily sedated; PSYCHIATRIC: unable to assess Assessment & Plan Remarks Severe L sided PNA, - growing MDRO PSAE similar as in ETT specimen - BAL with high WBC, PSAE leukocytosis, bandemia - 2/2 infx Acute VDRF, somewhat more stable from resp standpoind COPD, tobaccoism ` cont levaquine - cont meropenem - dc tobramycin - monitor clinically Fannie Avilez RN, MD Nov 24, 2016 19:17
--- NOTE | 2016-11-24 19:50 | HHI.PR ---
Subjective Remarks 70 YOWM with VDRF,PTX, pulm contusion, left ribs fractur On Vent Sedated with Fentanyl,Diprivan and on Zyprexa Chest tube no air leak CXR no PTX Gets agitated on weaning sedation. Objective Vital Signs Vital Signs Date Time Temp Pulse Resp B/P Pulse Ox O2 Delivery O2 Flow Rate FiO2 11/24/16 18:00 88 11/24/16 16:00 97 11/24/16 16:00 98.5 97 16 121/78 94 11/24/16 16:00 40 11/24/16 15:56 96 40 11/24/16 14:00 98 11/24/16 12:00 99 11/24/16 12:00 98.8 99 16 121/81 96 11/24/16 12:00 40 11/24/16 11:18 96 40 11/24/16 10:00 94 11/24/16 08:00 115 11/24/16 08:00 40 11/24/16 08:00 99.1 115 16 110/80 93 11/24/16 07:42 93 40 11/24/16 06:00 112 11/24/16 04:00 114 11/24/16 04:00 40 11/24/16 04:00 97.9 114 16 137/74 95 11/24/16 03:58 95 50 11/24/16 03:08 90 40 11/24/16 02:00 100 11/24/16 00:00 40 11/24/16 00:00 97.8 109 16 133/84 93 11/24/16 00:00 109 11/23/16 23:25 99 40 11/23/16 22:00 97 11/23/16 20:12 98 50 11/23/16 20:00 65 11/23/16 20:00 94 11/23/16 20:00 98.0 94 16 113/82 97 I/O 11/23/16 11/23/16 11/23/16 11/24/16 11/24/16 11/24/16 07:00 15:00 23:00 07:00 15:00 23:00 Intake Total 809 ml 1397 ml 995 ml 952 ml 1128 ml Output Total 415 ml 560 ml 510 ml 305 ml 585 ml Balance 394 ml 837 ml 485 ml 647 ml 543 ml Intake Oral 0 ml 0 ml 0 ml IV Total 371 ml 863 ml 550 ml 530 ml 588 ml Tube Feeding 378 ml 534 ml 385 ml 362 ml 440 ml Tube Irrigant 100 ml Other 60 ml 60 ml 60 ml Output Urine Total 400 ml 550 ml 500 ml 300 ml 525 ml Chest Tube Drainage Total 15 ml 10 ml 10 ml 5 ml 60 ml # Bowel Movements 0 1 0 0 2 Result Diagram: 11/24/166 11/24/16 0306 Objective Remarks GENERAL: WBWN WM on vent, sedated SKIN: Warm and dry. HEAD: Normocephalic. EYES: No scleral icterus. No injection or drainage. NECK: Supple, trachea midline. No JVD or lymphadenopathy. CARDIOVASCULAR: Regular rate and rhythm without murmurs, gallops, or rubs. RESPIRATORY: Breath sounds equal bilaterally. No accessory muscle use. Left chest tube, no air leak. GASTROINTESTINAL: Abdomen soft, non-tender, nondistended. MUSCULOSKELETAL: No cyanosis, or edema. BACK: Nontender without obvious deformity. No CVA tenderness. A/P Assessment and Plan VDRF COPD PTX, s/p left chest tube Pulm contusion Ribs Fracture PALN: Vent support CPAP trial Chest tube to suction Aerosol nebs Sedation withFentanyl, Diprivan Wean vent as tolerated. Abx Tobra, Levaquin and Meropenem per Ousmane Palacios MD Nov 24, 2016 19:50
[2016-11-25] VITALS (18 sets, daily range): BP systolic 105–159; BP diastolic 74–95; PULSE 77–102; RESP 16–17; TEMP 97.7–98.7; O2SAT 91–96
[2016-11-25] MEDS: PROPOFOL 1000 MG/100 ML INJ 100 ML IV SCH ×5 (00:49→23:41)
[2016-11-25] MEDS: methylPREDNISolone SOD SUCC 40 MG/1 ML VIAL IV PUSH SCH ×3 (05:06→20:36)
[2016-11-25] MEDS: INSULIN ASPART SUPPLEMENTAL SCALE SQ SCH ×4 (05:06→17:51)
[2016-11-25] MEDS: LEVOTHYROXINE SODIUM 75 MCG TAB PO SCH (05:06)
[2016-11-25] MEDS: fentaNYL DRIP 250 ML IV SCH (05:06)
[2016-11-25] MEDS: MEROPENEM INJ 1,000 MG in SODIUM CHLORIDE 0.9% INJ 100 ML IV SCH ×3 (05:07→20:37)
--- NOTE | 2016-11-25 06:42 | RADRPT ---
EXAM DATE/TIME: 11/25/2016 04:59 [facility] COMPARISON: CHEST SINGLE AP, November 21, 2016, 5:17. INDICATIONS : Shortness of breath. MEDICAL HISTORY : Hypertension. Chronic obstructive pulmonary disease. Congestive heart failure. SURGICAL HISTORY : None. ENCOUNTER: Subsequent ACUITY: 1 week PAIN SCORE: Non-responsive. LOCATION: Bilateral chest FINDINGS: The cardiac silhouette is enlarged in transverse diameter. Support lines and tubes are in satisfactor y position. There is bilateral lower lobe atelectasis versus pneumonia. Small bilateral pleural effus ions are identified. CONCLUSION: 1. Bilateral lower lobe atelectasis versus pneumonia. There has been no significant change when andrew red to the prior exam. Syed Muniz MD on November 25, 2016 at 6:39 Board Certified Radiologist. This report was verified electronically.
[2016-11-25] MEDS: PANTOPRAZOLE SODIUM 40 MG VIAL IV PUSH SCH (07:55)
[2016-11-25] MEDS: POLYETHYLENE GLYCOL 17 GM PKG PO SCH (07:56)
[2016-11-25] MEDS: LACTULOSE SYRUP 20 GM/30 ML CUP PO SCH (07:56)
[2016-11-25] MEDS: OLANZapine 10 MG TAB OG-TUBE SCH (07:56)
[2016-11-25] MEDS: SENNOSIDES SYRUP 8.8 MG/5 ML CUP PO SCH ×2 (07:56→20:36)
[2016-11-25] MEDS: ENOXAPARIN SODIUM 80 MG/0.8 ML SYRINGE SQ SCH ×2 (07:56→20:36)
[2016-11-25] MEDS: METOPROLOL TARTRATE 50 MG TAB PO SCH ×2 (07:56→20:36)
[2016-11-25] MEDS: DOCUSATE SODIUM 100 MG/10 ML UDC PO SCH ×2 (07:56→20:36)
[2016-11-25] MEDS: DEXMEDETOMIDINE INJ 200 MCG in SODIUM CHLORIDE 0.9% INJ 50 ML IV SCH ×3 (07:56→11:44)
[2016-11-25] MEDS: CHLORHEXIDINE 0.12% (ORAL KIT) 15 ML CUP MT SCH ×2 (07:57→20:37)
[2016-11-25] MEDS: SODIUM CHLORIDE 0.9% FLUSH 10 ML FLUSH IV FLUSH SCH ×2 (07:57→20:36)
[2016-11-25] MEDS: RESP: BUDESONIDE 0.5 MG/2 ML NEB NEB SCH ×2 (08:03→20:04)
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
[2016-11-25] MEDS ORDERED: LABETALOL HCL 100 MG/20 ML VIAL ONE (10:19)
[2016-11-25] MEDS ORDERED: LABETALOL HCL 100 MG/20 ML VIAL IV PUSH PRN (10:45)
[2016-11-25] MEDS: LEVOFLOXACIN 750 MG PREMIX INJ 150 ML IV SCH (15:43)
[2016-11-25] MEDS: TOBRAMYCIN IV SCH (17:48)
[2016-11-25] MEDS: SODIUM CHLORIDE 0.9% IV SCH (17:48)
--- NOTE | 2016-11-25 17:53 | HHI.IDPN ---
Subjective Subjective Remarks down to 40% FiO2 PREEP 8 tolerated CPAP trial earlier afebrile tolerating TF at goal Antibiotics meropenem + levaquine Past Medical History COPD Allergies: Coded Allergies: Trazodone (Verified Allergy, Mild, 11/15/16) Wellbutrin (Verified Allergy, Mild, 11/15/16) Objective . Vital Signs Date Time Temp Pulse Resp B/P Pulse Ox O2 Delivery O2 Flow Rate FiO2 11/25/16 16:00 90 11/25/16 16:00 40 11/25/16 16:00 97.7 88 16 117/84 92 11/25/16 15:11 95 45 11/25/16 14:00 102 11/25/16 12:08 96 45 11/25/16 12:00 98.2 95 16 135/95 93 11/25/16 12:00 92 11/25/16 12:00 40 11/25/16 10:30 45 11/25/16 10:00 90 11/25/16 08:03 91 45 11/25/16 08:00 40 11/25/16 08:00 98.3 93 16 159/90 95 11/25/16 08:00 87 11/25/16 06:00 99 11/25/16 04:04 91 40 11/25/16 04:00 84 11/25/16 04:00 98.4 84 17 110/80 91 11/25/16 04:00 40 11/25/16 02:00 40 11/25/16 02:00 87 11/25/16 02:00 98.3 90 17 120/74 91 11/25/16 01:13 92 40 11/25/16 00:00 90 11/24/16 22:07 94 40 11/24/16 22:00 92 11/24/16 20:04 90 40 11/24/16 20:00 94 11/24/16 20:00 40 11/24/16 20:00 97.9 94 17 127/79 92 11/24/16 18:00 88 11/24/16 11/24/16 11/25/16 15:00 23:00 07:00 Intake Total 1128 ml 1048 ml 1172 ml Output Total 585 ml 860 ml 645 ml Balance 543 ml 188 ml 527 ml IV Total 588 ml 600 ml 600 ml Tube Feeding 440 ml 348 ml 472 ml Tube Irrigant 100 ml Other 100 ml 100 ml Output Urine Total 525 ml 700 ml 625 ml Stool Total 150 ml Chest Tube Drainage Total 60 ml 10 ml 20 ml # Bowel Movements 2 1 . Laboratory Tests Test 11/24/16 03:06 White Blood Count 17.1 TH/MM3 Red Blood Count 3.96 MIL/MM3 Hemoglobin 11.7 GM/DL Hematocrit 36.1 % Mean Corpuscular Volume 91.1 FL Mean Corpuscular Hemoglobin 29.5 PG Mean Corpuscular Hemoglobin 32.4 % Concent Red Cell Distribution Width 17.3 % Platelet Count 294 TH/MM3 Mean Platelet Volume 8.7 FL Neutrophils (%) (Auto) 83.8 % Lymphocytes (%) (Auto) 1.6 % Monocytes (%) (Auto) 13.5 % Eosinophils (%) (Auto) 0.9 % Basophils (%) (Auto) 0.2 % Neutrophils # (Auto) 14.4 TH/MM3 Lymphocytes # (Auto) 0.3 TH/MM3 Monocytes # (Auto) 2.3 TH/MM3 Eosinophils # (Auto) 0.2 TH/MM3 Basophils # (Auto) 0.0 TH/MM3 CBC Comment AUTO DIFF Differential Total Cells 100 Counted Neutrophils % (Manual) 71 % Band Neutrophils % 12 % Lymphocytes % 4 % Monocytes % 3 % Neutrophils # (Manual) 15.9 TH/MM3 Metamyelocytes 3 % Myelocytes 7 % Differential Comment FINAL DIFF MANUAL Platelet Estimate NORMAL Platelet Morphology Comment NORMAL Red Cell Morphology Comment NORMAL Laboratory Tests Test 11/24/16 11/25/16 03:06 05:10 Sodium Level 137 MEQ/L Potassium Level 4.6 MEQ/L Chloride Level 100 MEQ/L Carbon Dioxide Level 29.4 MEQ/L Anion Gap 8 MEQ/L Blood Urea Nitrogen 33 MG/DL Creatinine 0.49 MG/DL 0.45 MG/DL Estimat Glomerular Filtration 169 ML/MIN 187 ML/MIN Rate Random Glucose 113 MG/DL Calcium Level 8.7 MG/DL Total Bilirubin 0.4 MG/DL Aspartate Amino Transf 29 U/L (AST/SGOT) Alanine Aminotransferase 48 U/L (ALT/SGPT) Alkaline Phosphatase 49 U/L Total Protein 5.4 GM/DL Albumin 2.1 GM/DL Imaging Last Impressions Chest X-Ray 11/25/16 0600 Signed Impressions: Service Date/Time: Friday, November 25, 2016 04:59 - CONCLUSION: 1. Bilateral lower lobe atelectasis versus pneumonia. There has been no significant change when compared to the prior exam. Syed Muniz MD CT Angiography 11/15/16 0245 Signed Impressions: Service Date/Time: Tuesday, November 15, 2016 03:17 - CONCLUSION: 1. There is no evidence for PE for technique. 2. Small left pneumothorax pleural effusion and left lung consolidation. Edward De La O MD Physical Exam CONSTITUTIONAL/GENERAL: This is an adequately nourished patient, in no apparent distress. TUBES/LINES/DRAINS: SKIN: No jaundice, rashes, or lesions. CARDIOVASCULAR: Regular rate and rhythm without murmurs, gallops, or rubs. No JVD. Peripheral pulses symmetric. well perfused perifery RESPIRATORY/CHEST: Symmetric, unlabored respirations. coarse BS to auscultation. No wheezes CT in place on th e L side with serosang drainaghe; no air leak GASTROINTESTINAL: Abdomen soft, non-tender, nondistended. No hepato-splenomegaly , or palpable masses. No guarding. Bowel sounds present. GENITOURINARY: Without palpable bladder distension. Ashford catheter in place with large amount of clear yellow urine MUSCULOSKELETAL: Extremities without clubbing, cyanosis, + 1-2 periferal edema. No joint tenderness or effusion noted. No mottling or clubbing. NEUROLOGICAL:Heavily sedated; PSYCHIATRIC: unable to assess Assessment & Plan Remarks Severe L sided PNA, - growing MDRO PSAE similar as in ETT specimen - BAL with high WBC, PSAE leukocytosis, bandemia - 2/2 infx Acute VDRF, somewhat more stable from resp standpoind COPD, tobaccoism ` cont levaquine - cont meropenem - monitor clinically - due to severe and extensive disease anticipate longer than 2 weeks course; evetually can switch to oral abx dw Fannie Boykin MD Nov 25, 2016 17:53
--- NOTE | 2016-11-25 18:19 | HHI.PR ---
Subjective Remarks 70 YOWM with VDRF,PTX, pulm contusion, left ribs fractur On Vent Sedated with Fentanyl,Diprivan and on Zyprexa Chest tube no air leak CXR no PTX Tolerated CPAP with Precedex for 3 hrs back on sedation Objective Vital Signs Vital Signs Date Time Temp Pulse Resp B/P Pulse Ox O2 Delivery O2 Flow Rate FiO2 11/25/16 18:00 84 11/25/16 16:00 90 11/25/16 16:00 40 11/25/16 16:00 97.7 88 16 117/84 92 11/25/16 15:11 95 45 11/25/16 14:00 102 11/25/16 12:08 96 45 11/25/16 12:00 98.2 95 16 135/95 93 11/25/16 12:00 92 11/25/16 12:00 40 11/25/16 10:30 45 11/25/16 10:00 90 11/25/16 08:03 91 45 11/25/16 08:00 40 11/25/16 08:00 98.3 93 16 159/90 95 11/25/16 08:00 87 11/25/16 06:00 99 11/25/16 04:04 91 40 11/25/16 04:00 84 11/25/16 04:00 98.4 84 17 110/80 91 11/25/16 04:00 40 11/25/16 02:00 40 11/25/16 02:00 87 11/25/16 02:00 98.3 90 17 120/74 91 11/25/16 01:13 92 40 11/25/16 00:00 90 11/24/16 22:07 94 40 11/24/16 22:00 92 11/24/16 20:04 90 40 11/24/16 20:00 94 11/24/16 20:00 40 11/24/16 20:00 97.9 94 17 127/79 92 I/O 11/24/16 11/24/16 11/24/16 11/25/16 11/25/16 11/25/16 07:00 15:00 23:00 07:00 15:00 23:00 Intake Total 952 ml 1128 ml 1048 ml 1172 ml 605 ml Output Total 305 ml 585 ml 860 ml 645 ml 650 ml Balance 647 ml 543 ml 188 ml 527 ml -45 ml Intake Oral 0 ml 0 ml IV Total 530 ml 588 ml 600 ml 600 ml 371 ml Tube Feeding 362 ml 440 ml 348 ml 472 ml 134 ml Tube Irrigant 100 ml Other 60 ml 100 ml 100 ml 100 ml Output Urine Total 300 ml 525 ml 700 ml 625 ml 650 ml Stool Total 150 ml Chest Tube Drainage Total 5 ml 60 ml 10 ml 20 ml 0 ml # Bowel Movements 0 2 1 0 Result Diagram: 11/24/16 0306 11/25/16 0510 Objective Remarks GENERAL: WBWN WM on vent, sedated SKIN: Warm and dry. HEAD: Normocephalic. EYES: No scleral icterus. No injection or drainage. NECK: Supple, trachea midline. No JVD or lymphadenopathy. CARDIOVASCULAR: Regular rate and rhythm without murmurs, gallops, or rubs. RESPIRATORY: Breath sounds equal bilaterally. No accessory muscle use. Left chest tube, no air leak. GASTROINTESTINAL: Abdomen soft, non-tender, nondistended. MUSCULOSKELETAL: No cyanosis, or edema. BACK: Nontender without obvious deformity. No CVA tenderness. A/P Assessment and Plan VDRF COPD PTX, s/p left chest tube Pulm contusion Ribs Fracture PALN: Vent support CPAP trial Chest tube to suction Aerosol nebs Sedation withFentanyl, Diprivan Wean vent as tolerated. Abx Tobra, Levaquin and Meropenem per ID CPAP trial in AM. Ousmane Li MD Nov 25, 2016 18:19
[2016-11-26] VITALS (19 sets, daily range): BP systolic 105–141; BP diastolic 80–91; PULSE 82–111; RESP 16; TEMP 97.9–98.8; O2SAT 92–100
[2016-11-26] MEDS: PROPOFOL 1000 MG/100 ML INJ 100 ML IV SCH ×6 (03:54→20:30)
[2016-11-26] MEDS: MEROPENEM INJ 1,000 MG in SODIUM CHLORIDE 0.9% INJ 100 ML IV SCH ×3 (03:54→20:30)
[2016-11-26] MEDS: LEVOTHYROXINE SODIUM 75 MCG TAB PO SCH (05:16)
[2016-11-26] MEDS: INSULIN ASPART SUPPLEMENTAL SCALE SQ SCH ×5 (05:16→23:30)
[2016-11-26] MEDS: methylPREDNISolone SOD SUCC 40 MG/1 ML VIAL IV PUSH SCH ×3 (05:16→20:30)
[2016-11-26] MEDS: ENOXAPARIN SODIUM 80 MG/0.8 ML SYRINGE SQ SCH ×2 (07:47→20:31)
[2016-11-26] MEDS: CHLORHEXIDINE 0.12% (ORAL KIT) 15 ML CUP MT SCH ×2 (07:47→20:29)
[2016-11-26] MEDS: OLANZapine 10 MG TAB OG-TUBE SCH (07:47)
[2016-11-26] MEDS: DOCUSATE SODIUM 100 MG/10 ML UDC PO SCH ×2 (07:48→20:30)
[2016-11-26] MEDS: POLYETHYLENE GLYCOL 17 GM PKG PO SCH (07:48)
[2016-11-26] MEDS: SENNOSIDES SYRUP 8.8 MG/5 ML CUP PO SCH ×2 (07:48→20:31)
[2016-11-26] MEDS: LACTULOSE SYRUP 20 GM/30 ML CUP PO SCH (07:48)
[2016-11-26] MEDS: SODIUM CHLORIDE 0.9% FLUSH 10 ML FLUSH IV FLUSH SCH ×2 (07:49→20:29)
[2016-11-26] MEDS: METOPROLOL TARTRATE 50 MG TAB PO SCH ×2 (07:49→20:30)
[2016-11-26] MEDS: PANTOPRAZOLE SODIUM 40 MG VIAL IV PUSH SCH (07:49)
[2016-11-26] MEDS: RESP: BUDESONIDE 0.5 MG/2 ML NEB NEB SCH ×2 (08:18→20:02)
[2016-11-26] MEDS: fentaNYL DRIP 250 ML IV SCH ×2 (09:43→20:30)
[2016-11-26] MEDS: DEXMEDETOMIDINE INJ 200 MCG in SODIUM CHLORIDE 0.9% INJ 50 ML IV SCH (09:58)
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
[2016-11-26] MEDS: POTASSIUM CHLORIDE 25 MEQ EFFERVESCENT TAB PO SCH (12:20)
[2016-11-26] MEDS: FUROSEMIDE 20 MG/2 ML VIAL IV PUSH SCH ×2 (12:20→17:20)
--- NOTE | 2016-11-26 13:39 | HHI.PR ---
Subjective Remarks 70 YOWM with VDRF,PTX, pulm contusion, left ribs fractur On Vent Sedated with Fentanyl,Diprivan and on Zyprexa Chest tube no air leak CXR no PTX Tolerated CPAP for 10 ,min only Objective Vital Signs Vital Signs Date Time Temp Pulse Resp B/P Pulse Ox O2 Delivery O2 Flow Rate FiO2 11/26/16 12:00 55 11/26/16 12:00 98.1 106 16 117/80 92 11/26/16 12:00 106 11/26/16 11:29 96 50 11/26/16 10:00 96 11/26/16 08:19 94 55 11/26/16 08:00 55 11/26/16 08:00 98.8 86 16 125/86 93 11/26/16 08:00 86 11/26/16 06:00 92 11/26/16 05:00 55 11/26/16 04:33 92 45 11/26/16 04:00 98.5 90 16 141/88 93 11/26/16 04:00 45 11/26/16 04:00 90 11/26/16 02:00 111 11/26/16 00:31 98 45 11/26/16 00:00 98.5 82 16 105/80 93 11/26/16 00:00 45 11/26/16 00:00 82 11/25/16 22:00 77 11/25/16 20:04 95 45 11/25/16 20:00 98.7 88 16 105/80 94 11/25/16 20:00 40 11/25/16 20:00 98.7 88 16 94 11/25/16 20:00 88 11/25/16 20:00 45 11/25/16 18:00 84 11/25/16 16:00 90 11/25/16 16:00 40 11/25/16 16:00 97.7 88 16 117/84 92 11/25/16 15:11 95 45 11/25/16 14:00 102 I/O 11/25/16 11/25/16 11/25/16 11/26/16 11/26/16 11/26/16 07:00 15:00 23:00 07:00 15:00 23:00 Intake Total 1172 ml 605 ml 1150 ml 1145 ml Output Total 645 ml 650 ml 950 ml 550 ml Balance 527 ml -45 ml 200 ml 595 ml Intake Oral 0 ml IV Total 600 ml 371 ml 750 ml 595 ml Tube Feeding 472 ml 134 ml 300 ml 400 ml Other 100 ml 100 ml 100 ml 150 ml Output Urine Total 625 ml 650 ml 950 ml 550 ml Chest Tube Drainage Total 20 ml 0 ml 0 ml 0 ml # Bowel Movements 1 0 1 Result Diagram: 11/24/16 0306 11/25/16 0510 Objective Remarks GENERAL: WBWN WM on vent, sedated SKIN: Warm and dry. HEAD: Normocephalic. EYES: No scleral icterus. No injection or drainage. NECK: Supple, trachea midline. No JVD or lymphadenopathy. CARDIOVASCULAR: Regular rate and rhythm without murmurs, gallops, or rubs. RESPIRATORY: Breath sounds equal bilaterally. No accessory muscle use. Left chest tube, no air leak. GASTROINTESTINAL: Abdomen soft, non-tender, nondistended. MUSCULOSKELETAL: No cyanosis, or edema. BACK: Nontender without obvious deformity. No CVA tenderness. A/P Assessment and Plan VDRF COPD PTX, s/p left chest tube Pulm contusion Ribs Fracture PALN: Vent support CPAP trial Chest tube to suction Aerosol nebs Sedation withFentanyl, Diprivan Wean vent as tolerated. Abx per ID CPAP trial in AM. Ousmane Li MD Nov 26, 2016 13:39
[2016-11-26] MEDS: LEVOFLOXACIN 750 MG PREMIX INJ 150 ML IV SCH (15:09)
[2016-11-26] MEDS: TOBRAMYCIN IV SCH (17:20)
[2016-11-26] MEDS: SODIUM CHLORIDE 0.9% IV SCH (17:20)
[2016-11-26] MEDS: RESP: ALBUTEROL 2.5 MG/IPRATROPIUM 0.5 MG NEB (PRN) NEB (20:02)
[2016-11-27] VITALS (18 sets, daily range): BP systolic 113–139; BP diastolic 78–90; PULSE 86–110; RESP 16; TEMP 97.6–98.6; O2SAT 92–98
[2016-11-27] MEDS: PROPOFOL 1000 MG/100 ML INJ 100 ML IV SCH ×5 (02:03→23:24)
[2016-11-27] MEDS: MEROPENEM INJ 1,000 MG in SODIUM CHLORIDE 0.9% INJ 100 ML IV SCH ×3 (02:46→20:26)
[2016-11-27] MEDS: methylPREDNISolone SOD SUCC 40 MG/1 ML VIAL IV PUSH SCH ×3 (04:59→20:25)
[2016-11-27] MEDS: LEVOTHYROXINE SODIUM 75 MCG TAB PO SCH (04:59)
[2016-11-27] MEDS: fentaNYL DRIP 250 ML IV SCH ×2 (05:42→20:26)
[2016-11-27] MEDS: INSULIN ASPART SUPPLEMENTAL SCALE SQ SCH ×3 (05:43→18:00)
[2016-11-27 07:06] LABS: HEMATOCRIT 33.5 % (39.0-51.0); HEMO FLAGS AUTO DIFF; MEAN CORPUSCULAR HEMOGLOBIN 30.5 PG (27.0-34.0); MEAN CORPUSCULAR HGB CONC 34.3 % (32.0-36.0); PLATELET COUNT 204 TH/MM3 (150-450); RED BLOOD COUNT 3.77 MIL/MM3 (4.50-5.90); RED CELL DISTRIBUTION WIDTH 18.1 % (11.6-17.2); WHITE BLOOD COUNT 17.2 TH/MM3 (4.0-11.0)
[2016-11-27] MEDS: DOCUSATE SODIUM 100 MG/10 ML UDC PO SCH ×2 (07:38→20:25)
[2016-11-27] MEDS: LACTULOSE SYRUP 20 GM/30 ML CUP PO SCH (07:38)
[2016-11-27] MEDS: PANTOPRAZOLE SODIUM 40 MG VIAL IV PUSH SCH (07:38)
[2016-11-27] MEDS: POTASSIUM CHLORIDE 25 MEQ EFFERVESCENT TAB PO SCH (07:39)
[2016-11-27] MEDS: ENOXAPARIN SODIUM 80 MG/0.8 ML SYRINGE SQ SCH ×2 (07:39→20:25)
[2016-11-27] MEDS: OLANZapine 10 MG TAB OG-TUBE SCH (07:39)
[2016-11-27] MEDS: METOPROLOL TARTRATE 50 MG TAB PO SCH ×2 (07:39→20:26)
[2016-11-27] MEDS: FUROSEMIDE 20 MG/2 ML VIAL IV PUSH SCH ×2 (07:39→18:59)
[2016-11-27] MEDS: SENNOSIDES SYRUP 8.8 MG/5 ML CUP PO SCH ×2 (07:39→20:25)
[2016-11-27] MEDS: SODIUM CHLORIDE 0.9% FLUSH 10 ML FLUSH IV FLUSH SCH ×2 (07:40→20:26)
[2016-11-27] MEDS: POLYETHYLENE GLYCOL 17 GM PKG PO SCH (07:40)
[2016-11-27] MEDS: CHLORHEXIDINE 0.12% (ORAL KIT) 15 ML CUP MT SCH ×2 (07:41→20:25)
[2016-11-27] MEDS: RESP: ALBUTEROL 2.5 MG/IPRATROPIUM 0.5 MG NEB (PRN) NEB (08:45)
[2016-11-27] MEDS: RESP: BUDESONIDE 0.5 MG/2 ML NEB NEB SCH ×2 (08:45→20:30)
[2016-11-27 08:57] LABS: BANDS 2 % (0-6); METAMYELOCYTES 1 % (0-1); MYELOCYTES 11 % (0-0); NEUTROPHIL # MANUAL DIFF 15.5 TH/MM3 (1.8-7.7); POLYS (SEG NEUTROPHILS) 76 % (16-70); WBC DIFF SAMPLE 100
[2016-11-27 08:59] LABS: SCAN/DIFF FINAL DIFF MANUAL
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
[2016-11-27] MEDS: DEXMEDETOMIDINE INJ 200 MCG in SODIUM CHLORIDE 0.9% INJ 50 ML IV SCH (12:36)
[2016-11-27] MEDS: LEVOFLOXACIN 750 MG PREMIX INJ 150 ML IV SCH (13:14)
--- NOTE | 2016-11-27 14:33 | HHI.PR ---
Subjective Remarks 70 YOWM with VDRF,PTX, pulm contusion, left ribs fractur On Vent Sedated with Fentanyl,Diprivan and on Zyprexa Chest tube no air leak CXR no PTX Did't tolerate CPAP Objective Vital Signs Vital Signs Date Time Temp Pulse Resp B/P Pulse Ox O2 Delivery O2 Flow Rate FiO2 11/27/16 12:00 98.1 93 16 124/84 92 11/27/16 12:00 93 11/27/16 12:00 50 11/27/16 10:58 93 50 11/27/16 10:00 88 11/27/16 08:47 96 50 11/27/16 08:00 50 11/27/16 08:00 98.3 99 16 119/85 92 11/27/16 08:00 99 11/27/16 06:00 107 11/27/16 04:39 93 50 11/27/16 04:00 110 11/27/16 04:00 97.7 110 16 113/78 93 11/27/16 04:00 40 11/27/16 02:00 101 11/27/16 01:12 95 50 11/27/16 00:00 97.6 102 16 135/90 95 11/27/16 00:00 102 11/27/16 00:00 40 11/26/16 22:09 100 50 11/26/16 22:00 100 11/26/16 20:00 101 11/26/16 20:00 40 11/26/16 20:00 97.9 101 16 121/84 95 11/26/16 19:12 97 50 11/26/16 18:00 107 11/26/16 16:00 98.6 108 16 121/91 98 11/26/16 16:00 50 11/26/16 16:00 108 11/26/16 15:42 94 50 I/O 11/26/16 11/26/16 11/26/16 11/27/16 11/27/16 11/27/16 07:00 15:00 23:00 07:00 15:00 23:00 Intake Total 1145 ml 816 ml 1151 ml 881 ml Output Total 550 ml 1195 ml 1005 ml 685 ml Balance 595 ml -379 ml 146 ml 196 ml Intake Oral 0 ml 0 ml 0 ml IV Total 595 ml 437 ml 709 ml 455 ml Tube Feeding 400 ml 379 ml 382 ml 366 ml Other 150 ml 60 ml 60 ml Output Urine Total 550 ml 1150 ml 1000 ml 650 ml Chest Tube Drainage Total 0 ml 45 ml 5 ml 35 ml # Bowel Movements 1 1 0 2 Result Diagram: 11/27/16 0422 11/25/16 0510 Objective Remarks GENERAL: WBWN WM on vent, sedated SKIN: Warm and dry. HEAD: Normocephalic. EYES: No scleral icterus. No injection or drainage. NECK: Supple, trachea midline. No JVD or lymphadenopathy. CARDIOVASCULAR: Regular rate and rhythm without murmurs, gallops, or rubs. RESPIRATORY: Breath sounds equal bilaterally. No accessory muscle use. Left chest tube, no air leak. GASTROINTESTINAL: Abdomen soft, non-tender, nondistended. MUSCULOSKELETAL: No cyanosis, or edema. BACK: Nontender without obvious deformity. No CVA tenderness. A/P Assessment and Plan VDRF COPD PTX, s/p left chest tube Pulm contusion Ribs Fracture PALN: Vent support CPAP trial Chest tube to suction Aerosol nebs Sedation withFentanyl, Diprivan Wean vent as tolerated. Abx per ID CPAP trial in AM. prob will need trach soon. Ousmane Li MD Nov 27, 2016 14:33
[2016-11-27] MEDS ORDERED: MIDAZOLAM HCL 5 MG/ML VIAL (1 ML) ONE (16:00)
[2016-11-27] MEDS ORDERED: ETOMIDATE 20 MG/10 ML VIAL ONE (16:00)
[2016-11-27] MEDS: SODIUM CHLORIDE 0.9% IV SCH (18:58)
[2016-11-27] MEDS: TOBRAMYCIN IV SCH (18:58)
[2016-11-27 19:29] LABS: ALT (GPT) 61 U/L (12-78); ANION GAP 7 MEQ/L (5-15); AST (GOT) 32 U/L (15-37); BICARBONATE 28.8 MEQ/L (21.0-32.0); BLOOD UREA NITROGEN 43 MG/DL (7-18); CHLORIDE 103 MEQ/L (98-107); GLOMERULAR FILTRATION RATE 148 ML/MIN (>89); POTASSIUM 4.9 MEQ/L (3.5-5.1); SODIUM (NA) 139 MEQ/L (136-145)
[2016-11-27 19:32] LABS: ALKALINE PHOSPHATASE 47 U/L (45-117); TOTAL BILIRUBIN ADULT 0.4 MG/DL (0.2-1.0)
[2016-11-28] VITALS (19 sets, daily range): BP systolic 81–142; BP diastolic 51–92; PULSE 62–127; RESP 16–24; TEMP 97.9–99.2; O2SAT 92–100
[2016-11-28] MEDS: MEROPENEM INJ 1,000 MG in SODIUM CHLORIDE 0.9% INJ 100 ML IV SCH ×3 (02:59→20:47)
[2016-11-28] MEDS: PROPOFOL 1000 MG/100 ML INJ 100 ML IV SCH ×5 (03:00→20:19)
[2016-11-28] MEDS: LEVOTHYROXINE SODIUM 75 MCG TAB PO SCH (05:14)
[2016-11-28] MEDS: methylPREDNISolone SOD SUCC 40 MG/1 ML VIAL IV PUSH SCH ×3 (05:14→22:06)
[2016-11-28] MEDS: INSULIN ASPART SUPPLEMENTAL SCALE SQ SCH ×4 (05:15→18:00)
[2016-11-28] MEDS: RESP: BUDESONIDE 0.5 MG/2 ML NEB NEB SCH ×2 (07:41→19:50)
[2016-11-28] MEDS: SODIUM CHLORIDE 0.9% FLUSH 10 ML FLUSH IV FLUSH SCH ×2 (09:00→20:50)
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
[2016-11-28] MEDS: LACTULOSE SYRUP 20 GM/30 ML CUP PO SCH (09:31)
[2016-11-28] MEDS: DOCUSATE SODIUM 100 MG/10 ML UDC PO SCH ×2 (09:31→20:48)
[2016-11-28] MEDS: POLYETHYLENE GLYCOL 17 GM PKG PO SCH (09:31)
[2016-11-28] MEDS: SENNOSIDES SYRUP 8.8 MG/5 ML CUP PO SCH ×2 (09:31→20:48)
[2016-11-28] MEDS: FUROSEMIDE 20 MG/2 ML VIAL IV PUSH SCH ×2 (09:32→16:39)
[2016-11-28] MEDS: POTASSIUM CHLORIDE 25 MEQ EFFERVESCENT TAB PO SCH (09:32)
[2016-11-28] MEDS: OLANZapine 10 MG TAB OG-TUBE SCH (09:32)
[2016-11-28] MEDS: METOPROLOL TARTRATE 50 MG TAB PO SCH ×2 (09:32→20:49)
[2016-11-28] MEDS: PANTOPRAZOLE SODIUM 40 MG VIAL IV PUSH SCH (09:32)
[2016-11-28] MEDS: CHLORHEXIDINE 0.12% (ORAL KIT) 15 ML CUP MT SCH ×2 (09:33→20:51)
[2016-11-28] MEDS: fentaNYL DRIP 250 ML IV SCH ×2 (11:06→20:20)
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
[2016-11-28] MEDS: TOBRAMYCIN IV SCH (16:38)
[2016-11-28] MEDS: SODIUM CHLORIDE 0.9% IV SCH (16:38)
[2016-11-28] MEDS: LEVOFLOXACIN 750 MG PREMIX INJ 150 ML IV SCH (16:39)
--- NOTE | 2016-11-28 17:12 | HHI.IDPN ---
Subjective Subjective Remarks not tolerating CPAP today Up on FiO2 to 65% small amount of secretions + liquid stool afebrile tolerating TF at goal Antibiotics meropenem + levaquine + tobra IV Past Medical History COPD Allergies: Coded Allergies: Trazodone (Verified Allergy, Mild, 11/15/16) Wellbutrin (Verified Allergy, Mild, 11/15/16) Objective . Vital Signs Date Time Temp Pulse Resp B/P Pulse Ox O2 Delivery O2 Flow Rate FiO2 11/28/16 15:14 93 65 11/28/16 14:00 62 11/28/16 12:00 65 11/28/16 12:00 62 11/28/16 12:00 99.0 84 22 90/66 95 11/28/16 11:57 93 65 11/28/16 10:00 62 11/28/16 08:00 99.2 107 16 138/85 100 11/28/16 08:00 62 11/28/16 08:00 65 11/28/16 07:41 95 65 11/28/16 06:00 92 11/28/16 04:00 97.9 127 17 101/64 96 11/28/16 04:00 127 11/28/16 04:00 70 11/28/16 03:48 93 70 11/28/16 02:00 86 11/28/16 00:59 92 70 11/28/16 00:00 98.0 100 16 142/92 92 11/28/16 00:00 70 11/28/16 00:00 100 11/27/16 22:00 86 11/27/16 20:30 98 70 11/27/16 20:00 70 11/27/16 20:00 87 11/27/16 20:00 97.8 87 16 115/84 97 11/27/16 18:00 95 11/27/16 17:25 96 100 11/27/16 11/27/16 11/28/16 15:00 23:00 07:00 Intake Total 793 ml 1176 ml 887 ml Output Total 850 ml 860 ml 560 ml Balance -57 ml 316 ml 327 ml Intake Oral 0 ml 0 ml IV Total 368 ml 755 ml 482 ml Tube Feeding 425 ml 421 ml 405 ml Output Urine Total 850 ml 750 ml 450 ml Stool Total 50 ml 100 ml Chest Tube Drainage Total 60 ml 10 ml # Bowel Movements 2 . Laboratory Tests Test 11/27/16 04:22 White Blood Count 17.2 TH/MM3 Red Blood Count 3.77 MIL/MM3 Hemoglobin 11.5 GM/DL Hematocrit 33.5 % Mean Corpuscular Volume 89.0 FL Mean Corpuscular Hemoglobin 30.5 PG Mean Corpuscular Hemoglobin 34.3 % Concent Red Cell Distribution Width 18.1 % Platelet Count 204 TH/MM3 Mean Platelet Volume 9.2 FL Neutrophils (%) (Auto) % Lymphocytes (%) (Auto) % Monocytes (%) (Auto) % Eosinophils (%) (Auto) % Basophils (%) (Auto) % Neutrophils # (Auto) TH/MM3 Lymphocytes # (Auto) TH/MM3 Monocytes # (Auto) TH/MM3 Eosinophils # (Auto) TH/MM3 Basophils # (Auto) TH/MM3 CBC Comment AUTO DIFF Differential Total Cells 100 Counted Neutrophils % (Manual) 76 % Band Neutrophils % 2 % Lymphocytes % 8 % Monocytes % 2 % Neutrophils # (Manual) 15.5 TH/MM3 Metamyelocytes 1 % Myelocytes 11 % Differential Comment FINAL DIFF MANUAL Hematology Comments Laboratory Tests Test 11/27/16 18:43 Sodium Level 139 MEQ/L Potassium Level 4.9 MEQ/L Chloride Level 103 MEQ/L Carbon Dioxide Level 28.8 MEQ/L Anion Gap 7 MEQ/L Blood Urea Nitrogen 43 MG/DL Creatinine 0.55 MG/DL Estimat Glomerular Filtration 148 ML/MIN Rate Random Glucose 103 MG/DL Calcium Level 8.2 MG/DL Total Bilirubin 0.4 MG/DL Aspartate Amino Transf 32 U/L (AST/SGOT) Alanine Aminotransferase 61 U/L (ALT/SGPT) Alkaline Phosphatase 47 U/L Total Protein 5.5 GM/DL Albumin 2.2 GM/DL Imaging Last Impressions Chest X-Ray 11/25/16 0600 Signed Impressions: Service Date/Time: Friday, November 25, 2016 04:59 - CONCLUSION: 1. Bilateral lower lobe atelectasis versus pneumonia. There has been no significant change when compared to the prior exam. Syed Muniz MD CT Angiography 11/15/16 0245 Signed Impressions: Service Date/Time: Tuesday, November 15, 2016 03:17 - CONCLUSION: 1. There is no evidence for PE for technique. 2. Small left pneumothorax pleural effusion and left lung consolidation. Edward De La O MD Physical Exam CONSTITUTIONAL/GENERAL: This is an adequately nourished patient, in no apparent distress. TUBES/LINES/DRAINS: SKIN: No jaundice, rashes, or lesions. CARDIOVASCULAR: Regular rate and rhythm without murmurs, gallops, or rubs. No JVD. Peripheral pulses symmetric. well perfused perifery RESPIRATORY/CHEST: Symmetric, unlabored respirations. coarse BS to auscultation. No wheezes CT in place on th e L side with minimal serous drainage; no air leak GASTROINTESTINAL: Abdomen soft, non-tender, nondistended. No hepato-splenomegaly , or palpable masses. No guarding. Bowel sounds present. Flexiseal in place with liquid stool GENITOURINARY: Without palpable bladder distension. Ashford catheter in place with large amount of clear yellow urine MUSCULOSKELETAL: Extremities without clubbing, cyanosis, + 1-2 periferal edema. No joint tenderness or effusion noted. No mottling or clubbing. NEUROLOGICAL:Heavily sedated; PSYCHIATRIC: unable to assess Assessment & Plan Remarks Severe L sided PNA, - growing MDRO PSAE similar as in ETT specimen - BAL with high WBC, PSAE leukocytosis, bandemia - 2/2 infx Acute VDRF, worsening resp status COPD, tobaccoism ` dc levaquine - cont meropenem change IV tobramycin to nebs - monitor clinically - repeat sputum clx - due to severe and extensive disease anticipate longer than 2 weeks course; eventually can switch to oral abx Fannie Avilez RN, MD Nov 28, 2016 17:12
--- NOTE | 2016-11-28 18:30 | HHI.PR ---
Subjective Remarks 70 YOWM with VDRF,PTX, pulm contusion, left ribs fractur On Vent Sedated with Fentanyl,Diprivan and on Zyprexa Chest tube no air leak CXR no PTX Did't tolerate CPAP Geta agitated Objective Vital Signs Vital Signs Date Time Temp Pulse Resp B/P Pulse Ox O2 Delivery O2 Flow Rate FiO2 11/28/16 16:00 65 11/28/16 16:00 62 11/28/16 16:00 98.8 92 24 88/51 96 11/28/16 15:14 93 65 11/28/16 14:00 62 11/28/16 12:00 65 11/28/16 12:00 62 11/28/16 12:00 99.0 84 22 90/66 95 11/28/16 11:57 93 65 11/28/16 10:00 62 11/28/16 08:00 99.2 107 16 138/85 100 11/28/16 08:00 62 11/28/16 08:00 65 11/28/16 07:41 95 65 11/28/16 06:00 92 11/28/16 04:00 97.9 127 17 101/64 96 11/28/16 04:00 127 11/28/16 04:00 70 11/28/16 03:48 93 70 11/28/16 02:00 86 11/28/16 00:59 92 70 11/28/16 00:00 98.0 100 16 142/92 92 11/28/16 00:00 70 11/28/16 00:00 100 11/27/16 22:00 86 11/27/16 20:30 98 70 11/27/16 20:00 70 11/27/16 20:00 87 11/27/16 20:00 97.8 87 16 115/84 97 I/O 11/27/16 11/27/16 11/27/16 11/28/16 11/28/16 11/28/16 06:59 14:59 22:59 06:59 14:59 22:59 Intake Total 881 ml 793 ml 1176 ml 887 ml 977 ml Output Total 685 ml 850 ml 860 ml 560 ml 1250 ml Balance 196 ml -57 ml 316 ml 327 ml -273 ml Intake Oral 0 ml 0 ml 0 ml IV Total 455 ml 368 ml 755 ml 482 ml 435 ml Tube Feeding 366 ml 425 ml 421 ml 405 ml 342 ml Other 60 ml 200 ml Output Urine Total 650 ml 850 ml 750 ml 450 ml 950 ml Stool Total 50 ml 100 ml 300 ml Chest Tube Drainage Total 35 ml 60 ml 10 ml # Bowel Movements 2 2 Result Diagram: 11/27/16 0422 11/27/16 1843 Objective Remarks GENERAL: WBWN WM on vent, sedated SKIN: Warm and dry. HEAD: Normocephalic. EYES: No scleral icterus. No injection or drainage. NECK: Supple, trachea midline. No JVD or lymphadenopathy. CARDIOVASCULAR: Regular rate and rhythm without murmurs, gallops, or rubs. RESPIRATORY: Breath sounds equal bilaterally. No accessory muscle use. Left chest tube, no air leak. GASTROINTESTINAL: Abdomen soft, non-tender, nondistended. MUSCULOSKELETAL: No cyanosis, or edema. BACK: Nontender without obvious deformity. No CVA tenderness. A/P Assessment and Plan VDRF COPD PTX, s/p left chest tube Pulm contusion Ribs Fracture PALN: Vent support Chest tube to suction Aerosol nebs Sedation withFentanyl, Diprivan Abx per ID CPAP trial in AM. prob will need trach soon. Ousmane Li MD Nov 28, 2016 18:30
[2016-11-28] MEDS: RESP: TOBRAMYCIN SULFATE 300 MG/5 ML NEB NEB SCH (19:50)
[2016-11-28] MEDS: ENOXAPARIN SODIUM 100 MG/ML SYRINGE SQ SCH (20:48)
[2016-11-29] VITALS (34 sets, daily range): BP systolic 81–135; BP diastolic 53–92; PULSE 90–134; RESP 16–17; TEMP 98–99.4; O2SAT 90–96
[2016-11-29] MEDS: PROPOFOL 1000 MG/100 ML INJ 100 ML IV SCH ×3 (00:31→11:05)
[2016-11-29] MEDS: MEROPENEM INJ 1,000 MG in SODIUM CHLORIDE 0.9% INJ 100 ML IV SCH ×2 (03:42→11:57)
[2016-11-29] MEDS ORDERED: DILTIAZEM 125 MG/NS 100 ML IV SCH ×2 (03:45)
[2016-11-29] MEDS: methylPREDNISolone SOD SUCC 40 MG/1 ML VIAL IV PUSH SCH (05:03)
[2016-11-29] MEDS: LEVOTHYROXINE SODIUM 75 MCG TAB PO SCH (05:03)
[2016-11-29] MEDS: INSULIN ASPART SUPPLEMENTAL SCALE SQ SCH ×3 (06:00→11:55)
[2016-11-29] MEDS: RESP: TOBRAMYCIN SULFATE 300 MG/5 ML NEB NEB SCH (07:25)
[2016-11-29] MEDS: RESP: BUDESONIDE 0.5 MG/2 ML NEB NEB SCH (07:25)
[2016-11-29] MEDS: fentaNYL DRIP 250 ML IV SCH ×2 (07:55→16:04)
[2016-11-29] MEDS: CHLORHEXIDINE 0.12% (ORAL KIT) 15 ML CUP MT SCH (08:11)
[2016-11-29] MEDS: SENNOSIDES SYRUP 8.8 MG/5 ML CUP PO SCH (08:11)
[2016-11-29] MEDS: ENOXAPARIN SODIUM 100 MG/ML SYRINGE SQ SCH (08:12)
[2016-11-29] MEDS: POTASSIUM CHLORIDE 25 MEQ EFFERVESCENT TAB PO SCH (08:13)
[2016-11-29] MEDS: OLANZapine 10 MG TAB OG-TUBE SCH (08:13)
[2016-11-29] MEDS: PANTOPRAZOLE SODIUM 40 MG VIAL IV PUSH SCH (08:14)
[2016-11-29] MEDS: POLYETHYLENE GLYCOL 17 GM PKG PO SCH (08:14)
[2016-11-29] MEDS: METOPROLOL TARTRATE 50 MG TAB PO SCH (08:14)
[2016-11-29] MEDS: LACTULOSE SYRUP 20 GM/30 ML CUP PO SCH (08:14)
[2016-11-29] MEDS: FUROSEMIDE 20 MG/2 ML VIAL IV PUSH SCH (08:14)
[2016-11-29] MEDS: DOCUSATE SODIUM 100 MG/10 ML UDC PO SCH (09:00)
[2016-11-29] MEDS: SODIUM CHLORIDE 0.9% FLUSH 10 ML FLUSH IV FLUSH SCH (09:00)
[2016-11-29 11:14] LABS: BASOPHIL # 0.3 TH/MM3 (0-0.2); BASOPHIL % 1.2 % (0.0-2.0); EOSINOPHIL # 0.3 TH/MM3 (0-0.4); EOSINOPHIL % 1.2 % (0.0-4.0); HEMATOCRIT 36.6 % (39.0-51.0); HEMO FLAGS AUTO DIFF; LYMPH % 3.4 % (9.0-44.0); LYMPHOCYTE # 0.8 TH/MM3 (1.0-4.8); MEAN CELL VOLUME 91.9 FL (80.0-100.0); MEAN CORPUSCULAR HGB CONC 32.7 % (32.0-36.0); MONO % 6.7 % (0.0-8.0); NEUT % 87.5 % (16.0-70.0); PLATELET COUNT 216 TH/MM3 (150-450); RED BLOOD COUNT 3.99 MIL/MM3 (4.50-5.90); WHITE BLOOD COUNT 22.8 TH/MM3 (4.0-11.0)
[2016-11-29 11:17] LABS: ALT (GPT) 52 U/L (12-78); ANION GAP 14 MEQ/L (5-15); AST (GOT) 43 U/L (15-37); BICARBONATE 21.4 MEQ/L (21.0-32.0); BLOOD UREA NITROGEN 43 MG/DL (7-18); CHLORIDE 104 MEQ/L (98-107); GLOMERULAR FILTRATION RATE 139 ML/MIN (>89); POTASSIUM 4.6 MEQ/L (3.5-5.1); SODIUM (NA) 139 MEQ/L (136-145)
[2016-11-29 11:19] LABS: ALKALINE PHOSPHATASE 49 U/L (45-117); TOTAL BILIRUBIN ADULT 0.6 MG/DL (0.2-1.0)
[2016-11-29 12:30] LABS: BANDS 1 % (0-6); METAMYELOCYTES 2 % (0-1); MYELOCYTES 5 % (0-0); NEUTROPHIL # MANUAL DIFF 22.3 TH/MM3 (1.8-7.7); POLYS (SEG NEUTROPHILS) 90 % (16-70); WBC DIFF SAMPLE 100
[2016-11-29 12:33] LABS: SCAN/DIFF FINAL DIFF MANUAL
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
--- NOTE | 2016-11-29 15:13 | HHI.HCPN ---
Reason for visit a. To assist with evaluation and management of symptoms including: Dyspnea, agitation b. To assist medical decision maker(s) with: better understanding of current medical conditions; weighing benefits/burdens of medical treatment options; making medical treatment decisions. . Subjective/Interval History INTERVAL NOTE: The patient's condition remains essentially unchanged. Prognosis remains quite poor. Discussed with family, see below. . . Family/friend interactions Discussed by telephone with the patient's 2 sons, Albin and Matthew. They agree with their uncle Ian's opinion to transition to comfort care and withdraw life support, and they defer decision-making to the patient's brother, Dr. Ian Valverde. I then discussed the case again with Dr. Valverde, and he confirms that he wants to transition the patient's care to comfort care only, withdrawal life support to allow a natural . . Advance Directives Living Will: Never completed Health Care Surrogate: Never completed Durable Power of Dry Clipper Tender: Never completed Advance Directive Specifics Significant change in goals: Transition to comfort care, withdrawal of life support to allow natural today . Objective Vital Signs Date Time Temp Pulse Resp B/P Pulse Ox O2 Delivery O2 Flow Rate FiO2 11/29/16 11:57 93 55 11/29/16 07:27 93 60 11/29/16 06:00 104 11/29/16 04:30 91 16 110/62 96 11/29/16 04:11 100 16 88/64 96 11/29/16 04:10 94 70 11/29/16 04:00 65 11/29/16 04:00 132 11/29/16 04:00 98.0 134 16 81/61 96 11/29/16 02:00 120 11/29/16 01:08 91 65 11/29/16 00:00 65 11/29/16 00:00 115 11/29/16 00:00 98.3 118 16 135/92 96 11/28/16 23:16 95 65 11/28/16 22:00 119 11/28/16 20:00 65 11/28/16 20:00 95 11/28/16 20:00 98.2 95 16 81/62 95 11/28/16 19:50 98 65 11/28/16 18:00 62 11/28/16 16:00 65 11/28/16 16:00 62 11/28/16 16:00 98.8 92 24 88/51 96 11/28/16 15:14 93 65 Intake & Output 11/29/16 11/29/16 07:00 19:00 Intake Total 2445 ml 950 ml Output Total 2180 ml 1600 ml Balance 265 ml -650 ml Intake Oral 0 ml 0 ml IV Total 1328 ml 455 ml Tube Feeding 917 ml 495 ml Other 200 ml Output Urine Total 1650 ml 1100 ml Stool Total 500 ml 500 ml Chest Tube Drainage Total 30 ml Physical Exam CONSTITUTIONAL/GENERAL: This is an obese, sedated patient, in no apparent distress in the [facility]. TUBES/LINES/DRAINS: ET tube, peripheral IV, Ashford catheter EYES: Pupils equal and round and reactive. No scleral icterus. No injection or drainage. Fundi not examined. ENT: Nose without bleeding or purulent drainage. Eschars present on the lower lip NECK: Trachea midline. Supple, nontender. No palpable thyroid enlargement or nodularity. CARDIOVASCULAR: Irregular without murmurs, gallops, or rubs. No JVD. RESPIRATORY/CHEST: Symmetric, unlabored respirations. Diminished breath sounds , left greater than right. Scattered rhonchi GASTROINTESTINAL: Abdomen soft, non-tender, obese. No hepato-splenomegaly, or palpable masses. No guarding. Bowel sounds present. GENITOURINARY: Without palpable bladder distension. Ashford catheter in place. MUSCULOSKELETAL: Extremities without clubbing or cyanosis, but there is 2-3+ generalized edema. No mottling or clubbing. NEUROLOGICAL: Sedated, nonresponsive PSYCHIATRIC: Unable to assess due to clinical condition and sedation . Diagnostic Tests Laboratory Laboratory Tests Test 11/27/16 11/27/16 11/29/16 04:22 18:43 10:36 White Blood Count 17.2 TH/MM3 22.8 TH/MM3 (4.0-11.0) (4.0-11.0) Red Blood Count 3.77 MIL/MM3 3.99 MIL/MM3 (4.50-5.90) (4.50-5.90) Hemoglobin 11.5 GM/DL 12.0 GM/DL (13.0-17.0) (13.0-17.0) Hematocrit 33.5 % 36.6 % (39.0-51.0) (39.0-51.0) Mean Corpuscular Volume 89.0 FL 91.9 FL (80.0-100.0) (80.0-100.0) Mean Corpuscular Hemoglobin 30.5 PG 30.0 PG (27.0-34.0) (27.0-34.0) Mean Corpuscular Hemoglobin 34.3 % 32.7 % Concent (32.0-36.0) (32.0-36.0) Red Cell Distribution Width 18.1 % 18.0 % (11.6-17.2) (11.6-17.2) Platelet Count 204 TH/MM3 216 TH/MM3 (150-450) (150-450) Mean Platelet Volume 9.2 FL 9.1 FL (7.0-11.0) (7.0-11.0) Neutrophils (%) (Auto) % (16.0-70.0) 87.5 % (16.0-70.0) Lymphocytes (%) (Auto) % (9.0-44.0) 3.4 % (9.0-44.0) Monocytes (%) (Auto) % (0.0-8.0) 6.7 % (0.0-8.0) Eosinophils (%) (Auto) % (0.0-4.0) 1.2 % (0.0-4.0) Basophils (%) (Auto) % (0.0-2.0) 1.2 % (0.0-2.0) Neutrophils # (Auto) TH/MM3 20.0 TH/MM3 (1.8-7.7) (1.8-7.7) Lymphocytes # (Auto) TH/MM3 0.8 TH/MM3 (1.0-4.8) (1.0-4.8) Monocytes # (Auto) TH/MM3 (0-0.9) 1.5 TH/MM3 (0-0.9) Eosinophils # (Auto) TH/MM3 (0-0.4) 0.3 TH/MM3 (0-0.4) Basophils # (Auto) TH/MM3 (0-0.2) 0.3 TH/MM3 (0-0.2) CBC Comment AUTO DIFF AUTO DIFF Differential Total Cells 100 100 Counted Neutrophils % (Manual) 76 % (16-70) 90 % (16-70) Band Neutrophils % 2 % (0-6) 1 % (0-6) Lymphocytes % 8 % (9-44) Monocytes % 2 % (0-8) 2 % (0-8) Neutrophils # (Manual) 15.5 TH/MM3 22.3 TH/MM3 (1.8-7.7) (1.8-7.7) Metamyelocytes 1 % (0-1) 2 % (0-1) Myelocytes 11 % (0-0) 5 % (0-0) Differential Comment FINAL DIFF FINAL DIFF MANUAL MANUAL Hematology Comments Sodium Level 139 MEQ/L 139 MEQ/L (136-145) (136-145) Potassium Level 4.9 MEQ/L 4.6 MEQ/L (3.5-5.1) (3.5-5.1) Chloride Level 103 MEQ/L 104 MEQ/L (98-107) (98-107) Carbon Dioxide Level 28.8 MEQ/L 21.4 MEQ/L (21.0-32.0) (21.0-32.0) Anion Gap 7 MEQ/L (5-15) 14 MEQ/L (5-15) Blood Urea Nitrogen 43 MG/DL (7-18) 43 MG/DL (7-18) Creatinine 0.55 MG/DL 0.58 MG/DL (0.60-1.30) (0.60-1.30) Estimat Glomerular Filtration 148 ML/MIN 139 ML/MIN Rate (>89) (>89) Random Glucose 103 MG/DL 155 MG/DL (74-106) (74-106) Calcium Level 8.2 MG/DL 8.4 MG/DL (8.5-10.1) (8.5-10.1) Total Bilirubin 0.4 MG/DL 0.6 MG/DL (0.2-1.0) (0.2-1.0) Aspartate Amino Transf 32 U/L (15-37) 43 U/L (15-37) (AST/SGOT) Alanine Aminotransferase 61 U/L (12-78) 52 U/L (12-78) (ALT/SGPT) Alkaline Phosphatase 47 U/L (45-117) 49 U/L (45-117) Total Protein 5.5 GM/DL 5.1 GM/DL (6.4-8.2) (6.4-8.2) Albumin 2.2 GM/DL 1.9 GM/DL (3.4-5.0) (3.4-5.0) Result Diagram: 11/29/16 1036 11/29/16 1036 Imaging Last Impressions Chest X-Ray 11/25/16 0600 Signed Impressions: Service Date/Time: Friday, November 25, 2016 04:59 - CONCLUSION: 1. Bilateral lower lobe atelectasis versus pneumonia. There has been no significant change when compared to the prior exam. Syed Muniz MD CT Angiography 11/15/16 0245 Signed Impressions: Service Date/Time: Tuesday, November 15, 2016 03:17 - CONCLUSION: 1. There is no evidence for PE for technique. 2. Small left pneumothorax pleural effusion and left lung consolidation. Edward De La O MD Procedures INTUBATION 11/15/16 . Assessment and Plan Disease Oriented Problem List: (1) respiratory failure, mechanically ventilated since 11/15/16 (2) end-stage COPD, oxygen dependent for 1.5 years (3) rib fractures and pneumothorax, mid October 2016 (4) multidrug-resistant Pseudomonas pneumonia (5) chronic atrial fibrillation, on anticoagulation (6) history of hepatitis C, 2012 (7) hypertension (8) history of CHF (9) GERD (10) hyperlipidemia (11) hypothyroidism (12) anemia (13) hearing loss Symptom Scale: (1) dyspnea 0-10 Scale: Unable to quantify (2) anxiety 0-10 Scale: Unable to quantify (3) pain 0-10 Scale: Unable to quantify Pertinent Non-Medical Issues Psychosocial: , 3 children who have been somewhat estranged, lived alone Spiritual: When the patient was a child, he went with his parents to the [employer]. The patient's brother does not know the patient remains spiritual or yarsanism, but he has noted Bibles in his apartment. Legal: The patient lacks capacity for decision-making at this time, and it is doubtful that he will regain that capacity. He has 3 children, and we were able to contact the 2 sons on 11/29/16. Ethical issues impacting care: None . Important Contacts Brother: Ian Valverde M.D. PhD [phone] Son: Matthew Valverde Son: Albin Valverde Daughter: Amy Hassan . Prognosis The patient's prognosis is very poor. He has underlying end-stage COPD, and now has respiratory failure, is ventilator dependent, and has a resistant Pseudomonas pneumonia. He is unlikely to survive this hospitalization; if he did, he would become a long-term resident in a chronic nursing facility. . Code Status: No Code Plan * DO NOT RESUSCITATE. * DECISION-MAKING: The patient lacks capacity for decision-making at this time, and it is doubtful that he will regain that capacity. The patient has 3 children who have been somewhat estranged from the patient in recent years, and we were able to finally reach the 2 sons (Albin and Matthew) on 11/29/16. They both defer decision making to their uncle, the patient's brother (Ian Valverde M.D. PhD, in [place], [place]) who has tried to help the patient out in recent years. We have been unable to reach the patient's daughter, but the available and willing majority of his 3 children have requested that their uncle Ian be the decision-maker. * GOALS: The patient's brother, Dr. Ian Valverde, is the healthcare proxy decision-maker, and he requests a transition to comfort care, withdrawal of life support to allow a natural today. The patient's 2 sons are coming "to say goodbye." * SYMPTOMS: His dyspnea and pain appear to be managed well by the fentanyl and propofol, as well as mechanical ventilation. * Palliative Care will continue to follow the patient during this hospitalization. . Time Spent Total Floor Time (mins): 40 Face to Face Time (mins): 11 >50% Counseling/Coord of Care: Yes Attestation To help prompt me to consider important information that might be impacting today's encounter and assessment, information from prior notes written by myself or my colleagues may have been "brought forward" into today's note. My signature on this note, however, is an attestation that I personally performed the exam, history, and/or decision-making noted today, and, unless otherwise indicated, the interactions with patient, family, and staff as well as the review of records all occurred today. I also attest that the listed assessment and stated plan reflect my best clinical judgment today based on the combination of historical information, prior notes, and today's exam/ interactions. When time spent is documented, it refers only to time spent today by the signer, or if indicated, combined time spent today by collaborating physician/nurse practitioner. Vianney Estrada MD Nov 29, 2016 15:13
[2016-11-29] MEDS ORDERED: HYOSCYAMINE 0.125 MG TAB PO/SL ONE (15:45)
[2016-11-29] MEDS ORDERED: LORazepam 2 MG/ML VIAL IV ONE ×2 (15:45→16:15)
[2016-11-29] MEDS ORDERED: fentaNYL DRIP 250 ML IV SCH (15:45)
[2016-11-29] MEDS ORDERED: FUROSEMIDE 20 MG/2 ML VIAL IV PRN (16:15)
[2016-11-29] MEDS ORDERED: LORazepam 2 MG/ML VIAL IVS PRN (16:15)
[2016-11-29] MEDS ORDERED: ACETAMINOPHEN 650 MG SUPP RECTAL PRN (16:15)
[2016-11-29] MEDS ORDERED: LORazepam 2 MG/ML VIAL IV PRN ×2 (16:15)
[2016-11-29] MEDS ORDERED: BISACODYL 10 MG SUPP RECTAL PRN (16:15)
--- NOTE | 2016-11-29 19:21 | HHI.PR ---
Subjective Remarks 70 YOWM with VDRF,PTX, pulm contusion, left ribs fractur On Vent Sedated with Fentanyl,Diprivan and on Zyprexa Chest tube no air leak CXR no PTX Geta agitated palliative care consulted Objective Vital Signs Vital Signs Date Time Temp Pulse Resp B/P Pulse Ox O2 Delivery O2 Flow Rate FiO2 11/29/16 15:42 96 55 11/29/16 11:57 93 55 11/29/16 07:27 93 60 11/29/16 06:00 104 11/29/16 04:30 91 16 110/62 96 11/29/16 04:11 100 16 88/64 96 11/29/16 04:10 94 70 11/29/16 04:00 65 11/29/16 04:00 132 11/29/16 04:00 98.0 134 16 81/61 96 11/29/16 02:00 120 11/29/16 01:08 91 65 11/29/16 00:00 65 11/29/16 00:00 115 11/29/16 00:00 98.3 118 16 135/92 96 11/28/16 23:16 95 65 11/28/16 22:00 119 11/28/16 20:00 65 11/28/16 20:00 95 11/28/16 20:00 98.2 95 16 81/62 95 11/28/16 19:50 98 65 I/O 11/28/16 11/28/16 11/28/16 11/29/16 11/29/16 11/29/16 07:00 15:00 23:00 07:00 15:00 23:00 Intake Total 887 ml 977 ml 1489 ml 956 ml 950 ml Output Total 560 ml 1250 ml 1520 ml 660 ml 1600 ml Balance 327 ml -273 ml -31 ml 296 ml -650 ml Intake Oral 0 ml 0 ml 0 ml IV Total 482 ml 435 ml 835 ml 493 ml 455 ml Tube Feeding 405 ml 342 ml 554 ml 363 ml 495 ml Other 200 ml 100 ml 100 ml Output Urine Total 450 ml 950 ml 1100 ml 550 ml 1100 ml Stool Total 100 ml 300 ml 400 ml 100 ml 500 ml Chest Tube Drainage Total 10 ml 20 ml 10 ml Result Diagram: 11/29/16 1036 11/29/16 1036 Objective Remarks GENERAL: WBWN WM on vent, sedated SKIN: Warm and dry. HEAD: Normocephalic. EYES: No scleral icterus. No injection or drainage. NECK: Supple, trachea midline. No JVD or lymphadenopathy. CARDIOVASCULAR: Regular rate and rhythm without murmurs, gallops, or rubs. RESPIRATORY: Breath sounds equal bilaterally. No accessory muscle use. Left chest tube, no air leak. GASTROINTESTINAL: Abdomen soft, non-tender, nondistended. MUSCULOSKELETAL: No cyanosis, or edema. BACK: Nontender without obvious deformity. No CVA tenderness. A/P Assessment and Plan VDRF COPD PTX, s/p left chest tube Pulm contusion Ribs Fracture PALN: Vent support Chest tube to suction Aerosol nebs Sedation withFentanyl, Diprivan Abx per ID family considering withdrawl Ousmane Li MD Nov 29, 2016 19:21
[2016-11-29] MEDS ORDERED: methylPREDNISolone SOD SUCC 40 MG/1 ML VIAL IV PUSH SCH (21:00)
[2016-11-30] VITALS (8 sets, daily range): BP systolic 152–155; BP diastolic 74–112; PULSE 123–158; RESP 16–22; TEMP 100.4; O2SAT 95–99
[2016-11-30] MEDS: fentaNYL DRIP 250 ML IV SCH ×2 (00:05→06:56)
[2016-11-30] MEDS: LORazepam 2 MG/ML VIAL IV SCH ×2 (04:00→07:52)
[2016-11-30] MEDS: RESP: ALBUTEROL 2.5 MG/IPRATROPIUM 0.5 MG NEB (PRN) NEB (07:42)
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
== END 2016-11-30 08:51 | disposition expired | DRG 166 ==
LOC: NEPC 23:49 → NEDA 11-15 02:04 → HIMW 11-15 05:40
PROVIDERS: ADMIT Internal Medicine Critical Care Medicine; ATTEND Internal Medicine Critical Care Medicine
PROC: 5A1955Z Respiratory Ventilation, Greater than 96 Consecutive Hours (ICD-10-PCS; 2016-11-15)
PROC: 0T9B70Z Drainage of Bladder with Drainage Device, Via Natural or Artificial Opening (ICD-10-PCS; 2016-11-15)
PROC: 0BH17EZ Insertion of Endotracheal Airway into Trachea, Via Natural or Artificial Opening (ICD-10-PCS; 2016-11-15)
PROC: 0W9B30Z Drainage of Left Pleural Cavity with Drainage Device, Percutaneous Approach (ICD-10-PCS; 2016-11-15)
PROC: 0B9J8ZX Drainage of Left Lower Lung Lobe, Via Natural or Artificial Opening Endoscopic, Diagnostic (ICD-10-PCS; principal; 2016-11-20)
DX: J44.0 Chronic obstructive pulmonary disease with (acute) lower respiratory infection (principal); J96.20 Acute and chronic respiratory failure, unspecified whether with hypoxia or hypercapnia; J15.1 Pneumonia due to Pseudomonas; Z99.81 Dependence on supplemental oxygen; I48.2 Chronic atrial fibrillation; S27.0XXA Traumatic pneumothorax, initial encounter; J44.1 Chronic obstructive pulmonary disease with (acute) exacerbation; F17.210 Nicotine dependence, cigarettes, uncomplicated; I10 Essential (primary) hypertension; F41.9 Anxiety disorder, unspecified; E03.9 Hypothyroidism, unspecified; E78.5 Hyperlipidemia, unspecified; K21.9 Gastro-esophageal reflux disease without esophagitis; F32.9 Major depressive disorder, single episode, unspecified; W05.1XXD Fall from non-moving nonmotorized scooter, subsequent encounter; S22.42XD Multiple fractures of ribs, left side, subsequent encounter for fracture with routine healing; Z16.35 Resistance to multiple antimicrobial drugs; Z79.01 Long term (current) use of anticoagulants; E87.5 Hyperkalemia; Z66 Do not resuscitate; Z51.5 Encounter for palliative care; D64.9 Anemia, unspecified; H91.90 Unspecified hearing loss, unspecified ear; N40.1 Benign prostatic hyperplasia with lower urinary tract symptoms; R33.8 Other retention of urine; Z86.11 Personal history of tuberculosis
CPT/HCPCS: 31500; 31624; 32551; 36600; 71010; 71275; 76937; 80048; 80053; 80200; 81001; 82140; 82550; 82565; 82805; 82948; 83605; 83735; 83880; 84100; 84132; 84443; 84484; 85007; 85025; 85027; 85610; 85730; 87015; 87040; 87070; 87077; 87102; 87116; 87186; 87205; 87206; 87641; 88112; 88305; 89051; 93005; 94002; 94003; 94640; 94664; 96365; 96375; C9113; J0456; J0610; J0696; J1120; J1650; J1815; J1940; J1956; J2060; J2185; J2250; J2270; J2405; J2543; J2920; J2930; J3010; J3260; J3475; J7040; J7050; J7626; J7682; Q9967